=== PATIENT | female | born 1945 | race Caucasian/White ===

== ENCOUNTER 2016-11-19 15:22 | Outpatient (CLI) ==
[2016-04-18 14:14] VITALS: BMI 17.4
[2016-11-19 15:44] LABS: BASOPHILS % (AUTO) 0.1 % (0.0-3.0); HEMATOCRIT 37.3 % (37.0-47.0); HEMOGLOBIN 12.1 g/dl (12.0-16.0); IMMATURE GRANULOCYTE % (AUTO) 0.5 % (0.0-5.0); LYMPHOCYTES # (AUTO) 1.3 K/uL (0.60-3.4); LYMPHOCYTES % (AUTO) 9.3 (10.0-50.0); MEAN CORPUSCULAR HEMOGLOBIN 28.4 pg (27.0-31.0); MEAN CORPUSCULAR HGB CONC 32.4 (31.8-35.4); MEAN CORPUSCULAR VOLUME 87.6 fl (81.0-99.0); MONOCYTES # (AUTO) 0.9 K/uL (0.4-2.0); MONOCYTES % (AUTO) 6.5 (0-10); NEUTROPHILS # (AUTO) 11.7 K/ul (2.0-6.9); NEUTROPHILS % (AUTO) 83.6; PLATELET COUNT 248 10^3/uL (140-440); RED BLOOD COUNT 4.26 10^6/ul (4.20-5.40); WHITE BLOOD COUNT 14.02 K/ul (4.6-10.2)
--- NOTE | 2016-11-19 15:54 | CT ---
EXAM: CT of the chest without contrast History: Chronic obstructive pulmonary disease with acute exacerbation. Comparison: Chest CT 04/24/2016 Technique: Multiplanar CT images through the thorax were obtained without the administration of IV contrast Findings: Heart size is within normal limits. Coronary calcifications. No pericardial effusion. No pathologically enlarged thoracic lymph nodes. Emphysema. No pneumothorax. No pleural fluid. Nodular infiltrates within the right middle lobe an d lingula are not significantly changed. There is a new focal nodular infiltrate seen along the rig ht heart border in the right upper lobe measuring 2.3 cm. Scattered areas of scarring again noted. Within the visualized upper abdomen, cholecystectomy clips. Calcified granulomas within the spleen. No acute osseous abnormalities. Impression: 1. The right middle lobe and lingular nodular infiltrates are not significantly changed. 2. New focal nodular infiltrate along the right heart border in the right upper lobe. Recommend fo llowup study in 3-6 months. 3. Emphysema. 4. Coronary artery disease.
[2016-11-19 16:03] LABS: ALBUMIN 3.1 g/dL (3.4-5.0); ALBUMIN/GLOBULIN RATIO 0.72; ANION GAP 14.4; BILIRUBIN,TOTAL 0.76 mg/dL (0.00-1.20); BUN/CREATININE RATIO 11.11; CALCIUM 9.2 mg/dL (8.2-10.2); CREATININE 0.72 mg/dL (0.60-1.30); POTASSIUM 3.4 mmol/L (3.5-5.10); TOTAL PROTEIN 7.4 g/dL (5.8-8.1)
== END 2016-11-19 15:23 | disposition home or self-care (01) ==
LOC: RAD 15:22
PROVIDERS: ATTEND General Practice
DX: J44.1 Chronic obstructive pulmonary disease with (acute) exacerbation (principal)
CPT/HCPCS: 36415; 80053; 85025

== ENCOUNTER 2016-11-19 18:33 | Inpatient (IN) | payer OTHER ==
[2016-11-19 21:54] VITALS: BMI 21.6
[2016-11-19] MEDS ORDERED: INFUVITE ADULT IV ONE (22:50)
[2016-11-19] MEDS ORDERED: SOLU-MEDROL 125 MG ONE (22:52)
[2016-11-19] MEDS ORDERED: SOLU-CORTEF 250 MG IVP SCH (23:00)
[2016-11-19] MEDS ORDERED: ROCEPHIN 1 GM in SODIUM CHLORIDE 50 ML IV SCH (23:30)
[2016-11-19] MEDS: INFUVITE ADULT 10 ML in D5%-1/2NS-KCL 20 MEQ/L IV SOL 1,000 ML IV SCH (23:31)
[2016-11-19] MEDS ORDERED: ROCEPHIN ONE (23:42)
[2016-11-20] MEDS: SOLU-CORTEF 250 MG IVP SCH ×4 (00:04→23:23)
[2016-11-20] MEDS: SYMBICORT 160-4.5 MCG INHALER IH SCH ×3 (00:31→20:28)
[2016-11-20] MEDS ORDERED: ZITHROMAX 500 MG in SODIUM CHLORIDE 250 ML IV SCH (01:00)
[2016-11-20] MEDS ORDERED: OMEGA PO SCH ×2 (09:00→11:15)
[2016-11-20] MEDS ORDERED: PROBIOTIC PO SCH (09:00)
[2016-11-20] MEDS: COZAAR PO SCH (10:24)
[2016-11-20] MEDS: PROBIOTIC PO SCH (11:00)
[2016-11-20] MEDS: DUONEB NEB SCH ×3 (11:06→23:10)
[2016-11-20] MEDS: OMEGA PO SCH (15:47)
[2016-11-20] MEDS: INFUVITE ADULT 10 ML in D5%-1/2NS-KCL 20 MEQ/L IV SOL 1,000 ML IV SCH (16:55)
[2016-11-20] MEDS: ROCEPHIN 1 GM in SODIUM CHLORIDE 50 ML IV SCH (20:29)
[2016-11-20] MEDS: ZITHROMAX 500 MG in SODIUM CHLORIDE 250 ML IV SCH (21:45)
[2016-11-21] MEDS: DUONEB NEB SCH ×4 (05:26→23:23)
[2016-11-21] MEDS ORDERED: INFUVITE ADULT IV ONE ×2 (05:58→18:13)
[2016-11-21] MEDS: INFUVITE ADULT 10 ML in D5%-1/2NS-KCL 20 MEQ/L IV SOL 1,000 ML IV SCH ×2 (06:29→18:21)
[2016-11-21] MEDS: SOLU-CORTEF 250 MG IVP SCH ×3 (06:49→22:56)
[2016-11-21] MEDS ORDERED: NON-FORMULARY MEDICATION PO SCH ×22 (09:00)
[2016-11-21] MEDS: COZAAR PO SCH (09:55)
[2016-11-21] MEDS: OMEGA PO SCH (09:55)
[2016-11-21] MEDS: PROBIOTIC PO SCH (09:55)
[2016-11-21] MEDS: SYMBICORT 160-4.5 MCG INHALER IH SCH ×2 (09:55→21:13)
[2016-11-21] MEDS: ROCEPHIN 1 GM in SODIUM CHLORIDE 50 ML IV SCH (20:02)
[2016-11-21] MEDS: ZITHROMAX 500 MG in SODIUM CHLORIDE 250 ML IV SCH (21:13)
[2016-11-22] MEDS: DUONEB NEB SCH ×5 (05:05→23:15)
[2016-11-22] MEDS ORDERED: DUONEB NEB STA (06:21)
[2016-11-22] MEDS: SOLU-CORTEF 250 MG IVP SCH ×3 (06:36→20:50)
[2016-11-22] MEDS ORDERED: ALBUTEROL 0.042% NEB NEB STA (09:13)
[2016-11-22] MEDS: COZAAR PO SCH (09:47)
[2016-11-22] MEDS: OMEGA PO SCH (09:48)
[2016-11-22] MEDS: SYMBICORT 160-4.5 MCG INHALER IH SCH ×2 (09:48→20:52)
[2016-11-22] MEDS: PROBIOTIC PO SCH (09:48)
[2016-11-22] MEDS ORDERED: SOLU-CORTEF 250 MG IVP STA (10:21)
[2016-11-22] MEDS ORDERED: ALBUTEROL 0.042% NEB NEB PRN (12:58)
[2016-11-22] MEDS ORDERED: INFUVITE ADULT IV ONE (15:07)
[2016-11-22 15:11] LABS: HEMATOCRIT 31.5 % (37.0-47.0); HEMOGLOBIN 9.9 g/dl (12.0-16.0); IMMATURE GRANULOCYTE % (AUTO) 1.6 % (0.0-5.0); LYMPHOCYTES # (AUTO) 0.6 K/uL (0.60-3.4); LYMPHOCYTES % (AUTO) 6.8 (10.0-50.0); MEAN CORPUSCULAR HEMOGLOBIN 28.3 pg (27.0-31.0); MEAN CORPUSCULAR HGB CONC 31.4 (31.8-35.4); MONOCYTES # (AUTO) 0.5 K/uL (0.4-2.0); MONOCYTES % (AUTO) 5.3 (0-10); NEUTROPHILS # (AUTO) 8.1 K/ul (2.0-6.9); NEUTROPHILS % (AUTO) 86.3; PLATELET COUNT 267 10^3/uL (140-440); WHITE BLOOD COUNT 9.36 K/ul (4.6-10.2)
[2016-11-22] MEDS: INFUVITE ADULT 10 ML in D5%-1/2NS-KCL 20 MEQ/L IV SOL 1,000 ML IV SCH (15:23)
[2016-11-22 15:31] LABS: ALBUMIN 2.5 g/dL (3.4-5.0); ALBUMIN/GLOBULIN RATIO 0.74; ANION GAP 11.7; BILIRUBIN,TOTAL 0.13 mg/dL (0.00-1.20); BUN/CREATININE RATIO 14.28; CALCIUM 8.8 mg/dL (8.2-10.2); CREATININE 0.63 mg/dL (0.60-1.30); POTASSIUM 3.7 mmol/L (3.5-5.10); TOTAL PROTEIN 5.9 g/dL (5.8-8.1)
[2016-11-22] MEDS ORDERED: SOLU-CORTEF 250 MG ONE (20:50)
[2016-11-22] MEDS: ROCEPHIN 1 GM in SODIUM CHLORIDE 50 ML IV SCH (20:51)
[2016-11-22] MEDS: ZITHROMAX 500 MG in SODIUM CHLORIDE 250 ML IV SCH (21:40)
[2016-11-23] MEDS ORDERED: INFUVITE ADULT IV ONE ×2 (00:48→15:32)
[2016-11-23] MEDS: INFUVITE ADULT 10 ML in D5%-1/2NS-KCL 20 MEQ/L IV SOL 1,000 ML IV SCH ×3 (03:46→15:40)
[2016-11-23] MEDS: SOLU-CORTEF 250 MG IVP SCH ×3 (05:04→20:52)
[2016-11-23] MEDS: DUONEB NEB SCH ×4 (06:10→23:42)
[2016-11-23] MEDS: SYMBICORT 160-4.5 MCG INHALER IH SCH ×2 (09:18→20:53)
[2016-11-23] MEDS: PROBIOTIC PO SCH (09:18)
[2016-11-23] MEDS: OMEGA PO SCH (09:19)
[2016-11-23] MEDS: COZAAR PO SCH (09:19)
[2016-11-23] MEDS: ROCEPHIN 1 GM in SODIUM CHLORIDE 50 ML IV SCH (20:50)
[2016-11-23] MEDS: ZITHROMAX 500 MG in SODIUM CHLORIDE 250 ML IV SCH (21:36)
[2016-11-24] MEDS: INFUVITE ADULT 10 ML in D5%-1/2NS-KCL 20 MEQ/L IV SOL 1,000 ML IV SCH ×2 (03:29→09:45)
[2016-11-24] MEDS: SOLU-CORTEF 250 MG IVP SCH ×3 (04:20→20:22)
[2016-11-24] MEDS: DUONEB NEB SCH ×5 (05:36→23:03)
[2016-11-24] MEDS: SYMBICORT 160-4.5 MCG INHALER IH SCH ×2 (09:20→20:22)
[2016-11-24] MEDS: COZAAR PO SCH (09:21)
[2016-11-24] MEDS: PROBIOTIC PO SCH (09:21)
[2016-11-24] MEDS: OMEGA PO SCH (09:21)
--- NOTE | 2016-11-24 11:35 | PN ---
DATE OF VISIT: 11/21/16 SUBJECTIVE: The patient is alert and using 2 liters of nasal oxygen. She claims that she is feeling better. This patient has pneumonitis by CT. She had fever of 101 at the office. The patient's vital signs about 6:00 in the afternoon on 11/21/16 showed a temperature of 97.9, pulse 96, blood pressure 164/76, respiratory rate 18 and oxygen saturation 94% with 2 liters. LUNGS: Markedly diminished breath sounds with few rales and some expiratory wheezing. HEART: Audible with good tones, mostly normal sinus rhythms. ABDOMEN: Non-tender CONDITION: Stable MTDD
--- NOTE | 2016-11-24 11:41 | PN ---
DATE OF VISIT: 11/22/16 SUBJECTIVE: This patient this morning had some episode of increasing shortness of breath plus wheezing. I ordered Solu-Cortef 125mg SUBCUT and nebulizer DUONEB. The patient at the time of my examination and feeling better no longer dyspneic or tachypneic. LUNGS: Still breath sounds are markedly diminished in both sides with minimal air exchange but no wheezing and no rales HEART: Audible with good tones The patient's BNP is 427, elevated. Albumin is low at 2.5, blood sugar 142 but this patient is on Dextrose 5% with 1/2 saline IV. This patient is receiving Zithromax 500mg daily as well as Rocephin 1 gram daily. This patient has no known drug allergies and the patient will be given Lasix 20mg intervenously today and repeat BNP tomorrow. MTDD
--- NOTE | 2016-11-24 14:18 | PN ---
DATE OF VISIT: 11/23/16 SUBJECTIVE: The patient is alert and somewhat feeling better. She still has nasal oxygen at 2 liters and her oxygen saturation is between 91 to 92%. Her vitals signs at 11/23/16 showed a temperature of 95.6 axiliary, pulse 100, blood pressure 167/96 and respiratory rate 24 and oxygen saturation 90% at 2 liters. This patient is receiving DUONEB by nebulizing Q 6 hours, Rocephin 1 gram Iv piggyback daily, Zithromax 500mg IV piggyback daily, Solu-Cortef 250mg 125 Q 6 hours. MTDD
[2016-11-24] MEDS: ROCEPHIN 1 GM in SODIUM CHLORIDE 50 ML IV SCH (20:21)
[2016-11-24] MEDS: LOVENOX SUBCUT SCH (21:53)
[2016-11-24] MEDS: MUCINEX PO SCH (21:53)
[2016-11-24] MEDS: ZITHROMAX 500 MG in SODIUM CHLORIDE 250 ML IV SCH (21:53)
[2016-11-25] MEDS ORDERED: INFUVITE ADULT IV ONE (01:53)
[2016-11-25] MEDS: INFUVITE ADULT 10 ML in D5%-1/2NS-KCL 20 MEQ/L IV SOL 1,000 ML IV SCH ×2 (01:58→16:56)
[2016-11-25] MEDS: SOLU-CORTEF 250 MG IVP SCH ×3 (05:35→20:53)
[2016-11-25] MEDS: DUONEB NEB SCH ×3 (05:49→17:04)
[2016-11-25] MEDS: PROBIOTIC PO SCH (09:19)
[2016-11-25] MEDS: OMEGA PO SCH (09:19)
[2016-11-25] MEDS: LOVENOX SUBCUT SCH (09:20)
[2016-11-25] MEDS: SYMBICORT 160-4.5 MCG INHALER IH SCH ×2 (09:20→20:53)
[2016-11-25] MEDS: COZAAR PO SCH (09:20)
[2016-11-25] MEDS: MUCINEX PO SCH ×2 (09:21→20:53)
--- NOTE | 2016-11-25 11:30 | PN ---
DATE OF VISIT: 11/24/16 The patient is alert and claimed to be feeling much better today. She had coughed a large amount of sputum, which made her feel better. VITAL SIGNS: Today at 6 p.m., temperature 97.8 axillary, pulse 94, blood pressure 164/75, respiratory rate 20, oxygen saturation 97 at 2 Liters. LUNGS: The lungs now has air exchange and practically no audible air exchange yesterday. It is now heard in both sides and no rales. HEART: Audible with good tones. ASSESSMENT: Improved This patient is receiving Azithromycin 500 mg and Ceftriaxone 1 gram daily. The patient will be given Mucinex 1200 mg twice a day and Lovenox 30 mg subcutaneously daily. MTDD
[2016-11-25 19:32] LABS: ALBUMIN 2.7 g/dL (3.4-5.0); ALBUMIN/GLOBULIN RATIO 0.82; ANION GAP 14.9; BILIRUBIN,TOTAL 0.34 mg/dL (0.00-1.20); BUN/CREATININE RATIO 19.23; CALCIUM 8.5 mg/dL (8.2-10.2); CREATININE 0.78 mg/dL (0.60-1.30); POTASSIUM 2.9 mmol/L (3.5-5.10)
[2016-11-25] MEDS: ROCEPHIN 1 GM in SODIUM CHLORIDE 50 ML IV SCH (20:52)
[2016-11-26] MEDS: DUONEB NEB SCH ×4 (00:05→19:28)
[2016-11-26 05:22] LABS: BASOPHILS % (AUTO) 0.2 % (0.0-3.0); HEMATOCRIT 34.4 % (37.0-47.0); HEMOGLOBIN 10.7 g/dl (12.0-16.0); IMMATURE GRANULOCYTE % (AUTO) 1.8 % (0.0-5.0); LYMPHOCYTES # (AUTO) 1.3 K/uL (0.60-3.4); LYMPHOCYTES % (AUTO) 15.5 (10.0-50.0); MEAN CORPUSCULAR HEMOGLOBIN 28.4 pg (27.0-31.0); MEAN CORPUSCULAR HGB CONC 31.1 (31.8-35.4); MEAN CORPUSCULAR VOLUME 91.2 fl (81.0-99.0); MONOCYTES # (AUTO) 0.5 K/uL (0.4-2.0); MONOCYTES % (AUTO) 5.4 (0-10); NEUTROPHILS # (AUTO) 6.4 K/ul (2.0-6.9); NEUTROPHILS % (AUTO) 77.1; PLATELET COUNT 321 10^3/uL (140-440); RED BLOOD COUNT 3.77 10^6/ul (4.20-5.40); WHITE BLOOD COUNT 8.26 K/ul (4.6-10.2)
[2016-11-26] MEDS: SOLU-CORTEF 250 MG IVP SCH ×3 (05:55→21:27)
[2016-11-26] MEDS: OMEGA PO SCH (08:15)
[2016-11-26] MEDS: SYMBICORT 160-4.5 MCG INHALER IH SCH ×2 (08:15→21:00)
[2016-11-26] MEDS: PROBIOTIC PO SCH (08:16)
[2016-11-26] MEDS: LOVENOX SUBCUT SCH (08:16)
[2016-11-26] MEDS: COZAAR PO SCH (08:16)
[2016-11-26] MEDS: MUCINEX PO SCH ×2 (08:16→21:00)
--- NOTE | 2016-11-26 08:20 | CT ---
EXAM: CT chest without contrast. HISTORY: Pneumonia follow-up. Shortness of breath. Cough. COMPARISON: 11/19/2016, 04/25/2015. TECHNIQUE: Multiple axial images of the chest were obtained without intravenous contrast. Images w ere reformatted in the sagittal and coronal planes. FINDINGS: Evaluation for lymphadenopathy is limited due to lack of intravenous contrast. Heart siz e is normal. There is no pericardial effusion. Atherosclerotic calcifications are present. Emphysematous changes present bilaterally. Calcified granulomatous changes seen. Right upper lobe consolidation has improved with a small of consolidation in the anterior right upper lobe along the fissure persisting. There is a small amount of consolidation. The posterior right upper lobe on ax ial images 33-35 which is new. There is mildly improved aeration in the lingula as well. Dependent consolidation in both lower lobes along the diaphragms noted. Nodular density in the right upper l obe on axial image 24 is stable since 60 and 15. No pleural effusion or pneumothorax detected. Limited images of the upper abdomen demonstrate no acute finding. No acute osseous abnormality iden tified. IMPRESSION: 1. Improved aeration in the anterior right upper lobe and lingula. 2. New small focus of consolidation in the posterior right upper lobe. 3. Subsegmental atelectasis in both posterior lower lobes. 4. Follow-up CT in approximately 4-6 weeks recommended for reassessment.
[2016-11-26] MEDS ORDERED: ROCEPHIN ONE (20:16)
[2016-11-26] MEDS: ROCEPHIN 1 GM in SODIUM CHLORIDE 50 ML IV SCH (21:00)
[2016-11-27] MEDS: DUONEB NEB SCH ×3 (00:04→11:17)
[2016-11-27] MEDS: SOLU-CORTEF 250 MG IVP SCH ×2 (05:54→12:41)
[2016-11-27] MEDS: SYMBICORT 160-4.5 MCG INHALER IH SCH (08:16)
[2016-11-27] MEDS: PROBIOTIC PO SCH (08:17)
[2016-11-27] MEDS: OMEGA PO SCH (08:17)
[2016-11-27] MEDS: MUCINEX PO SCH (08:17)
[2016-11-27] MEDS: COZAAR PO SCH (08:17)
[2016-11-27] MEDS: LOVENOX SUBCUT SCH (08:18)
[2016-11-27] MEDS ORDERED: NORVASC PO SCH (14:30)
--- NOTE | 2016-11-27 14:52 | PN ---
DATE OF VISIT: 11/26/16 The patient is feeling better, but still having problems breathing. She is not back to where she was. This patient has continuous oxygen at home also. Her oxygen saturation is 92. The chest CT done today showed improved aeration in the anterior right upper lobe and lingula. New small focus of consolidation in the posterior right upper lobe. Subsegmental atelectasis in both posterior lower lobes. Follow up CT in 4 to 6 weeks. This patient was advised to take deep breaths and blow it out slowly. She should do it every hour. LUNGS: Breath sounds are markedly diminished in both sides, but there is an air exchange with minimal expiratory wheeze. HEART: Audible and regular with good tones. VITAL SIGNS: At 6:00 on 11/26/16 showed a temperature of 97.4, pulse 88, blood pressure 170/74, respiratory rate 18, oxygen saturation 94 at 2 liters. The patient's appetite seemed to be improving consuming 80 to 90% of the meals. This patient will be discharged with oral Prednisone at a different dose. MTDD
[2016-11-27 15:16] VITALS: BP 154/68; TEMP 98.7
[2016-11-27] MEDS ORDERED: COZAAR PO SCH (21:00)
--- NOTE | 2016-12-01 15:35 | HP ---
CHIEF COMPLAINT: Cough, shortness of breath and fever. HISTORY OF PRESENT ILLNESS: The patient presented to the office on the day of the admission because of fever and increasing shortness of breath and cough. The patient on examination indeed has no audible air exchange, which is a change from her previous examination and has expiratory wheezing both anteriorly and posteriorly. The patient was then sent to the hospital for a CT scan of the chest. The CT was interpreted as bilateral pneumonitis. The patient was quite weak and so the patient was advised admission and she was agreeable. PAST PERSONAL HISTORY: The patient is known to have COPD for sometime. She was admitted previously for pneumonia in April. She had herpes zoster, but no significant postherpetic neuralgia, previous cholecystectomy and CVA with complete recovery or resolution. Coronary artery disease and hypertension. FAMILY HISTORY: Father had MT and from the myocardial infarction. Mother had senile dementia. A sister with diabetes mellitus. SOCIAL HISTORY: The patient is and resides with her . She stopped smoking about seven months ago. She denied any alcohol use or drug abuse. MEDICATIONS: Symbicort 160/4.5 mcg, one puff twice a day Losartan 50 mg twice a day Spiriva 18 mcg one inhalation daily Crestor 10 mg tablet daily Probiotic one capsule daily [place] XL one daily ALLERGIES: No known drug allergies. REVIEW OF SYSTEMS: CONSTITUTIONAL: The patient has fever with some chilly sensations and fatigue. [employer] GRADER: Denies any significant headaches, no ataxia, but does have generalized weakness on account of the recent illness and no history of seizure disorder. VISUAL: Denies any blurred vision, double vision or transient loss of vision. AUDITORY: Hearing is somewhat diminished, but denies any tinnitus, pain or drainage. RESPIRATORY: The patient has significant shortness of breath and rapid breathing. She also has cough with fever. CARDIOVASCULAR: She denies any chest oppression or chest tightness. GASTROINTESTINAL: The appetite has decreased on account of the recent problems, but no abdominal pain, no diarrhea, no vomiting. GENITOURINARY: Denies any pain, frequency or urgency of urination. MUSCULOSKELETAL: No significant joint pains at this time or muscular. INTEGUMENT: No rash or pruritus. ENDOCRINE: Negative. HEMATOLOGIC: No history of prolonged bleeding. PSYCHIATRIC: Affect is normal. PHYSICAL EXAMINATION: GENERAL: We have a 71 year old female admitted to the hospital because of fever and significant increase of shortness of breath. This patient is known to have to COPD with respiratory failure and is on home oxygen. The CT scan of the chest showed bilateral pneumonitis. VITAL SIGNS: Temperature 98.6, pulse 103, blood pressure 177/81, respiratory rate 22, oxygen saturation 93 at 2 Liters. She is 5'4", 126 pounds, BMI 21.6. HEAD: Unremarkable. FACE: Symmetrical and equal with no facial weakness. No remarkable tenderness to palpation under pressure in the frontal or maxillary sinus areas. EYES: Pupils equal/reactive to light about 3 mm in size. Conjunctivae not pale. Sclerae not icteric. MOUTH: Unremarkable. THROAT: No inflammation, tumors or exudate. NECK: No masses. No bruit. No tenderness. No adenopathy. No rigidity. CHEST: Essentially symmetrical and equal with decreased expansion. LUNGS: Breath sounds are not audible. Has inspiratory, plus expiratory wheezing. HEART: Audible and regular with good tones. No murmurs. ABDOMEN: Flat, soft with no remarkable tenderness and no guarding. Bowel sounds are active. No masses palpable. EXTERNAL GENITALIA: Not examined. PELVIC: Not done. LOWER EXTREMITIES: Essentially symmetrical and equal with no significant edema. UPPER EXTREMITIES: Symmetrical and equal. ASSESSMENT: 1. BILATERAL PNEUMONITIS 2. CHRONIC RESPIRATORY FAILURE WITH EXACERBATION 3. CHRONIC OBSTRUCTIVE PULMONARY DISEASE WITH ACUTE EXACERBATION 4. HYPERTENSION, UNCONTROLLED 5. HISTORY OF CHRONIC SMOKING, STOPPED SEVEN MONTHS AGO PROGNOSIS: Guarded. MTDD
--- NOTE | 2016-12-02 14:54 | DS ---
PATIENT IDENTIFICATION: 71 year old female who is known to have chronic infective lung disease with respiratory failure with home oxygen at 2 Liters per minute presented to the office because of increasing shortness of breath and weakness with a fever of 101. The patient's breath sounds were markedly diminished with expiratory wheezing. A chest CT was done and a new infiltrate was noted. The previous infiltrate is about the same in the right middle lobe and lingular nodule infiltrate. The new one is on the border of the right cardiac border. HOSPITAL COURSE: Initial CBC showed 14,020 WBC, 11.7 neutrophils. Medications consisting of Symbicort 164.5, Losartan 50 mg twice a day and Spiriva, plus Crestor were continued including the Probiotic and [place] XL. The patient was given Zithromax 500 mg IV daily and Ceftriaxone 1 gram IV daily. The Zithromax was discontinued after 7 days. She also received Lovenox 30 mg subcutaneously daily while in the hospital. The blood pressure was still elevated and Amlodipine 2.5 mg was added. She also was prescribed Mucinex 1200 mg LA twice a day. Solu-Cortef 250 mg was given every 8 hours. Albuterol Sulfate nebulizer 0.042% was given and continued every four hours prn. The patient's temperature had returned to normal and remained normal throughout her hospital stay. The pulse was fluctuating from normal to slightly tachycardic and the blood pressure also was fluctuating in the range of 150 to 160 systolic. Blood pressure at the time of discharge was 154/68. Amlodipine 2.5 mg was added. The patient's oxygen saturation at 2 Liters was 94 at 10 a.m. on the day of discharge and also 94 at 2 o'clock. The patient claimed to be better or feeling better. Chest CT done 11/26/2016 was read as improved aeration in the anterior right upper lobe and lingula. New small focus of consolidation in the right posterior upper lobe. Subsegmental atelectasis in both posterior lobes. Follow up CT in 4-6 weeks. The patient at the time of discharge was alert, ambulatory with 2 Liters of nasal oxygen. She claimed to be feeling better. Her appetite also is better. LUNGS: Breath sounds are heard well in the left side with no rales or wheezing. The right side is diminished compared to the left, but no rales or wheezing. HEART: Audible and regular with good tones. ABDOMEN: Nontender. PLAN: The patient is then discharged to see me next week about Thursday or Thursday and she is prescribed the following medications: 1. Amlodipine 2.5 mg daily. 2. Prednisone 5 mg tablet #25, two tablets three times a day for three days and then one tablet twice a day for two days and then one daily until finished. 3. Mucinex LA 1200 mg twice a day. 4. Omnicef 300 mg capsule twice a day #8. FINAL DIAGNOSES: 1. PNEUMONITIS RIGHT UPPER LINGULA LOBE AND CARDIAC BORDER, IMPROVED 2. EXACERBATION OF CHRONIC RESPIRATORY FAILURE, IMPROVED 3. CHRONIC OBSTRUCTIVE PULMONARY DISEASE BY HISTORY, SEVERE 4. HYPERTENSION PROGNOSIS: Guarded. MTDD
--- NOTE | 2017-02-11 11:13 | PN ---
DATE OF VISIT: 11/20/2016 The patient is alert and still tachypneic at times. She is still using 2 liters of nasal oxygen. VITAL SIGNS: At 6 p.m., Temperature 97.8, pulse 80, blood pressure 123/78, respiratory rate 16, better than the previous. Oxygen saturation 96 at 2 liters. GENERAL: The patient is alert and oriented. She has no cyanosis. LUNGS: Still markedly diminished breath sounds with expiratory wheezing both anteriorly and posteriorly. ABDOMEN: Soft and nontender. HEART: Audible with good tones. CONDITION: Stable. MTDD
--- NOTE | 2017-02-11 11:19 | PN ---
DATE OF VISIT: 11/25/2016 The patient is somewhat better. She is still tachypneic, in spite of the 2 liters of oxygen. She had been on oxygen at home for sometime. LUNGS: Still has diminished breath sides in both sides. Expiratory wheezing is still present, but less. HEART: Audible with good tones, mostly regular. ABDOMEN: Soft, nontender. VITAL SIGNS: At 6 p.m., temperature 97.4, pulse 97, blood pressure 151/71, respiratory rate 20, oxygen saturation 92 at 2 liters. PLAN: We will plan to do a CT of the chest and see what improvement there is, if there is any. This patient was advised to take deep breaths about three at a time and several times a day to exercise her lungs. CONDITION: Stable and somewhat improved. MTDD
== END 2016-11-27 17:42 | disposition home or self-care (01) | DRG 194 ==
LOC: MEDSURG A 18:33
PROVIDERS: ADMIT General Practice; ATTEND General Practice
DX: J18.9 Pneumonia, unspecified organism (principal); J44.1 Chronic obstructive pulmonary disease with (acute) exacerbation; J98.11 Atelectasis; I10 Essential (primary) hypertension; R50.9 Fever, unspecified; Z87.891 Personal history of nicotine dependence; Z99.81 Dependence on supplemental oxygen
CPT/HCPCS: 36415; 80053; 83880; 85025; 87040; 87070; 94640; 99223; 99232; 99239

== ENCOUNTER 2016-12-08 14:17 | Outpatient (CLI) ==
--- NOTE | 2016-12-08 15:58 | CT ---
Examination: Noncontrast CT images of the chest. Comparison: 11/26/2016. Reason for study: Cough. FINDINGS: There are diffuse emphysematous changes noted bilaterally. Similar appearing consolidativ e changes seen in the right apex. There is similar appearing scarring changes seen in the left uppe r right upper and right middle lobes. There is a new area patchy consolidative change/scarring in t he right lung base best seen on image number 48. Similar appearing tree in bud opacities are also n oted the right middle lobe best seen on image number 33. There is no pleural effusion or pneumothor ax. The heart is not enlarged. There is atherosclerotic disease of the aorta and distal arterial va sculature to include the coronary vessels. No obvious enlargement of mediastinal lymph nodes. Within the limitations of a noncontrasted study, the liver, spleen, adrenal glands, and partially im aged pancreas are unremarkable. Degenerative disease of the thoracic spine. Impression 1. New small focus of consolidation/scarring in the posterior right lower lobe. 2. Diffuse emphysematous changes consistent with chronic obstructive pulmonary disease. 3. Multiple small regions of similar appearing consolidative changes and ground-glass as described. 4. Atherosclerotic disease.
== END 2016-12-08 14:18 | disposition home or self-care (01) ==
LOC: RAD 14:17
PROVIDERS: ATTEND General Practice
DX: R05 Cough (principal); R06.02 Shortness of breath; Z09 Encounter for follow-up examination after completed treatment for conditions other than malignant neoplasm

== ENCOUNTER 2017-06-15 08:33 | Outpatient (CLI) ==
[2017-06-15 09:07] LABS: BASOPHILS % (AUTO) 0.2 % (0.0-3.0); EOSINOPHILS # (AUTO) 0.1 K/ul (0.0-0.7); EOSINOPHILS % (AUTO) 1.5 % (0.0-7.0); HEMOGLOBIN 13.3 g/dl (12.0-16.0); IMMATURE GRANULOCYTE % (AUTO) 0.2 % (0.0-5.0); LYMPHOCYTES # (AUTO) 1.9 K/uL (0.60-3.4); LYMPHOCYTES % (AUTO) 31.7 (10.0-50.0); MEAN CORPUSCULAR HEMOGLOBIN 29.1 pg (27.0-31.0); MEAN CORPUSCULAR HGB CONC 33.3 (31.8-35.4); MEAN CORPUSCULAR VOLUME 87.5 fl (81.0-99.0); MONOCYTES # (AUTO) 0.5 K/uL (0.4-2.0); MONOCYTES % (AUTO) 8.2 (0-10); NEUTROPHILS # (AUTO) 3.5 K/ul (2.0-6.9); NEUTROPHILS % (AUTO) 58.2; PLATELET COUNT 184 10^3/uL (140-440); RED BLOOD COUNT 4.57 10^6/ul (4.20-5.40); WHITE BLOOD COUNT 5.97 K/ul (4.6-10.2)
[2017-06-15 09:17] LABS: BILIRUBIN,URINE Negative (NEGATIVE); KETONES,URINE Negative (NEGATIVE); LEUKOCYTE ESTERASE ,URINE Negative (NEGATIVE); NITRITE,URINE Negative (NEGATIVE); PROTEIN,URINE Negative (NEGATIVE); URINE, BLOOD Negative (NEGATIVE)
[2017-06-15 09:20] LABS: ADD URINE MICROSCOPIC NO
[2017-06-15 09:27] LABS: ALBUMIN 3.6 g/dL (3.4-5.0); ALBUMIN/GLOBULIN RATIO 1.03; ANION GAP 12.1; BILIRUBIN,TOTAL 0.46 mg/dL (0.00-1.20); BUN/CREATININE RATIO 13.33; CALCIUM 9.4 mg/dL (8.2-10.2); CHOL/HDL RATIO 3.2 (4.5-5.5); CREATININE 0.75 mg/dL (0.60-1.30); POTASSIUM 4.1 mmol/L (3.5-5.10); TOTAL PROTEIN 7.1 g/dL (5.8-8.1)
== END 2017-06-15 08:34 | disposition home or self-care (01) ==
LOC: LAB 08:33
PROVIDERS: ATTEND General Practice
DX: E78.5 Hyperlipidemia, unspecified (principal); I10 Essential (primary) hypertension; J44.9 Chronic obstructive pulmonary disease, unspecified; R09.89 Other specified symptoms and signs involving the circulatory and respiratory systems; Z79.899 Other long term (current) drug therapy
CPT/HCPCS: 36415; 80053; 80061; 81001; 85025

== ENCOUNTER 2018-02-24 15:11 | Outpatient (CLI) | payer OTHER ==
--- NOTE | 2018-02-24 15:54 | CT ---
EXAM: CT abdomen pelvis without contrast HISTORY: Mid abdominal pain COMPARISON: None TECHNIQUE: CT abdomen pelvis performed without intravenous contrast. Coronal and sagittal reformatt ed images obtained. FINDINGS: Lung bases clear. No free air. No acute abnormalities of the bones. Degenerative change in the spine. Evaluation organ parenchyma limited without contrast. Liver appears normal. Patient status post cholecystectomy. Pancreas unremarkable. Granulomas calcification in the spleen. Splee n otherwise unremarkable. Adrenals unremarkable. Calcification right kidney likely vascular. No hy dronephrosis. No definite nephrolithiasis. Aorta normal caliber. Extensive atherosclerosis. Bladd er only mildly distended and poorly evaluated, grossly unremarkable. Uterus unremarkable. Stomach a ppears normal. No dilated loops small bowel. Appendix not visualized. Mild colonic diverticulosis. No inflammatory stranding identified in the abdomen pelvis. IMPRESSION: 1. No acute inflammatory process identified in the abdomen or pelvis. 2. Mild colonic diverticulosis. 3. Atherosclerosis
--- NOTE | 2018-02-24 15:55 | CT ---
EXAM: CT chest without contrast HISTORY: Shortness of breath and cough COMPARISON: CT chest 12/08/2016 and multiple priors TECHNIQUE: Serial axial images of the chest were obtained from the lung apices to the upper abdomen without contrast. These were viewed in multiple planes. FINDINGS: The thyroid is normal. The visualized vessels demonstrates mild atherosclerotic disease w ithout aneurysm or stenosis. The heart is normal in size without pericardial effusion. There are no pathologically enlarged mediastinal or hilar lymph nodes. There is no pneumothorax or pleural effusion. There is unchanged emphysematous disease. There is un changed right lower lobe scar on image 20. There is minimal airway thickening in the lower lobes. Th e central airways are patent. Osseous structures demonstrate degenerative disease of the spine. The soft tissues are unremarkable. IMPRESSION: 1. No acute cardiopulmonary process or consolidation. 2. Unchanged emphysematous disease and mild scattered scarring. There is minimal lower lobe airway t hickening consistent with history of chronic obstructive pulmonary disease. 3. Mild atherosclerotic disease and degenerative disease of the spine.
== END 2018-02-24 15:12 | disposition home or self-care (01) ==
LOC: RAD 15:11
PROVIDERS: ATTEND General Practice
DX: R06.02 Shortness of breath (principal); R19.06 Epigastric swelling, mass or lump; E78.5 Hyperlipidemia, unspecified; I10 Essential (primary) hypertension; J44.9 Chronic obstructive pulmonary disease, unspecified; R09.89 Other specified symptoms and signs involving the circulatory and respiratory systems; Z79.899 Other long term (current) drug therapy
CPT/HCPCS: 36415; 80053; 80061; 81001; 83880; 85025

== ENCOUNTER 2018-09-13 14:50 | Outpatient (CLI) | payer OTHER ==
--- NOTE | 2018-09-13 15:39 | DI ---
EXAM: Two views of the chest. History: Chronic obstructive pulmonary disease Comparison: Chest radiograph 07/09/2016 Findings: Heart size is within normal limits. There is hyperinflation with increase in retrosternal clear space. There is bronchial wall thickening. No consolidation. No pleural fluid and no pneumo thorax. Atherosclerotic vascular calcifications. No acute osseous abnormalities. Impression: No definite acute infiltrates. Chronic obstructive pulmonary disease
== END 2018-09-13 14:51 | disposition home or self-care (01) ==
LOC: RAD 14:50
PROVIDERS: ATTEND General Practice
DX: J44.9 Chronic obstructive pulmonary disease, unspecified (principal); R06.89 Other abnormalities of breathing
CPT/HCPCS: 36415; 80053; 83880; 85025

== ENCOUNTER 2018-11-22 14:23 | Outpatient (CLI) ==
--- NOTE | 2018-11-22 14:45 | DI ---
EXAM: Two views of the chest. History: Chest pain. Comparison: Chest radiograph 09/13/2018 Findings: Heart size is normal. Hyperinflation with increase in retrosternal clear space. No defin ite acute infiltrates. No appreciable pleural fluid and no pneumothorax. No acute osseous abnormali ties. Atherosclerotic vascular calcifications. Impression: No definite acute infiltrates. Chronic obstructive pulmonary disease. No change compar ed to the prior study
== END 2018-11-22 14:24 | disposition home or self-care (01) ==
LOC: RAD 14:23
PROVIDERS: ATTEND General Practice
DX: R07.9 Chest pain, unspecified (principal)

== ENCOUNTER 2018-12-15 13:40 | Emergency (ER) | payer OTHER ==
[2018-12-15 13:49] VITALS: BP 124/58; TEMP 97; BMI 16.6
--- NOTE | 2018-12-15 14:57 | CT ---
EXAM: CT left ankle without contra HISTORY: Injury COMPARISON: None TECHNIQUE: CT left ankle performed without intravenous contrast. Coronal and sagittal reformatted i mages obtained. FINDINGS: The bones appear demineralized. No fracture or dislocation. Ankle mortise symmetric. Sigala bcutaneous edema about the foot and ankle. IMPRESSION: 1. No fracture or dislocation. 2. Diffuse subcutaneous edema. Recommend correlation for cellulitis.
--- NOTE | 2018-12-15 14:58 | CT ---
EXAM: CT left foot without contrast HISTORY: Injury COMPARISON: None TECHNIQUE: CT left foot performed without intravenous contrast. Coronal and sagittal reformatted of the images obtained. FINDINGS: Bones appear demineralized. No fracture or dislocation. There is a blister about the tyler bridget aspect of the forefoot at the level of the distal aspect second - third metatarsal level. In the adjacent subcutaneous tissues, there is a high density collection measuring 1.1 x2.6 x2.3 cm and 85 HU, and 80 HU, most consistent with hematoma. Diffuse subcutaneous edema about the foot. IMPRESSION: 1. No fracture or dislocation. 2. 2.5 cm high density collection in the subcutaneous tissues, most consistent with hematoma. Adjac ent blister. Recommend clinical follow-up. 3. Diffuse subcutaneous edema about the ankle and foot. Recommend clinical correlation for cellulit is.
--- NOTE | 2018-12-15 17:19 | ED.PDOC ---
General ED Provider: Dr. CATARINO MARTINEZ Chief Complaint: Foot Pain/Injury Stated Complaint: left foot brusing Time Seen by Physician: 14:00 (heavy dog stepped on her left foot) Mode of Arrival: Wheelchair Information Source: Patient Exam Limitations: No limitations [facility] Nursing and Triage Documentation Reviewed and Agree: Yes Does patient meet sepsis criteria?: No If yes, has appropriate treatment been initiated?: No System Inflammatory Response Syndrome: Not Applicable Sepsis Protocol: For patient's 13 years and over: Temp is 96.8 and below OR 101 and greater Pulse >90 BPM Resp >20/minute Acutely Altered Mental Status Are patient's symptoms suggestive of a new infection, such as: -Pneumonia -Skin, Soft Tissue -Endocarditis -UTI -Bone, Joint Infection -Implantable Device -Acute Abdominal Infection -Wound Infection -Meningitis -Blood Stream Catheter Infection -Unknown Musculoskeletal Complaint Exam - Ankle/Foot Complaint/Exam Location of Injury: Reports: Left, Foot Mechanism of Injury: Reports: Trauma Onset/Duration: 1 week ago see photos Symptoms Are: Reports: Still present Onset of Pain: Reports: Immediate Initial Severity: Mild Current Severity: Mild Location: Reports: Discrete Character: Reports: Dull, Aching Alleviating: Reports: None Aggravating: Reports: None Able to Bear Weight: No Associated Signs and Symptoms: Reports: Swelling, Redness Gout Risk Factors: Reports: None Related Surgical History: Reports: None Lower Extremity Findings: Present: Swelling, Ecchymosis Tenderness: Absent: Medial malleolus, Lateral malleolus, Heel, Achilles insertion, Midfoot, Metatarsals, Digits Differential Diagnosis: Closed Fracture, Sprain, Strain Review of Systems - Review Of Systems Constitutional: Reports: No symptoms Eyes: Reports: No symptoms Ears, Nose, Mouth, Throat: Reports: No symptoms Respiratory: Reports: No symptoms Cardiac: Reports: No symptoms GI: Reports: No symptoms : Reports: No symptoms Musculoskeletal: Reports: Other (left foot edema and brusing) Skin: Reports: No symptoms Neurological: Reports: No symptoms Endocrine: Reports: No symptoms Hematologic/Lymphatic: Reports: No symptoms All Other Systems: Reviewed and Negative Past Medical History - Past Medical History Previously Healthy: No Endocrine: Reports: None Cardiovascular: Reports: None Respiratory: Reports: COPD (pulmonary nodule), Pneumonia Hematological: Reports: None Gastrointestinal: Reports: None Genitourinary: Reports: None Neuro/Psych: Reports: None Musculoskeletal: Reports: None Cancer: Reports: None Last Menstrual Period: none - Surgical History General Surgical History: Reports: Unknown - Family History Family History: Reports: Unknown - Social History Smoking Status: Former smoker Hx Substance Use: No Alcohol Screening: None Physical Exam - Physical Exam Appearance: Well-appearing, No pain distress, Well-nourished Eyes: LULU, EOMI, Conjunctiva clear ENT: Ears normal, Nose normal, Oropharynx normal Respiratory: Airway patent, Breath sounds clear, Breath sounds equal, Respirations nonlabored Cardiovascular: RRR, Pulses normal, No rub, No murmur GI/: Soft, Nontender, No masses, Bowel sounds normal, No Organomegaly Musculoskeletal: Normal strength, ROM intact, No edema, No calf tenderness Skin: Warm, Dry (brused see photos) Neurological: Sensation intact, Motor intact, Reflexes intact, Cranial nerves intact, Alert, Oriented Psychiatric: Affect appropriate, Mood appropriate Physician Notification - Case Discussed Physician Notified: pmd Time of Notification: 17:21 (labs and sepsis profile negative pmd would like to see her in am candi present during my discussion with pmd and pt and the family) Critical Care Note - Critical Care Note Total Time (mins): 0 Course - Course Hematology/Chemistry: 12/15/18 15:47 12/15/18 15:47 Orders, Labs, Meds: Lab Review 12/15/18 12/15/18 12/15/18 15:47 15:47 15:47 WBC 5.23 RBC 4.33 Hgb 12.4 Hct 38.3 MCV 88.5 MCH 28.6 MCHC 32.4 RDW Coeff of Shayy 13.1 Plt Count 194 Immature Gran % (Auto) 0.2 Neut % (Auto) 63.2 Lymph % (Auto) 27.2 Island % (Auto) 6.9 Eos % (Auto) 2.1 Baso % (Auto) 0.4 Immature Gran # (Auto) 0.0 Neut # (Auto) 3.3 Lymph # (Auto) 1.4 Island # (Auto) 0.4 Eos # (Auto) 0.1 Baso # (Auto) 0.0 Sodium 138.1 Potassium 4.42 Chloride 96.1 L Carbon Dioxide 34.6 H Anion Gap 11.82 BUN 11.1 Creatinine 0.50 L Estimated GFR (MDRD) 120.00 BUN/Creatinine Ratio 22.20 Glucose 88.3 Lactic Acid Calcium 8.73 Total Bilirubin 0.35 AST 23.4 ALT 11.5 Alkaline Phosphatase 84.1 Total Protein 7.20 Albumin 4.06 Globulin 3.14 Albumin/Globulin Ratio 1.29 Procalcitonin < 0.05 12/15/18 15:47 WBC RBC Hgb Hct MCV MCH MCHC RDW Coeff of Shayy Plt Count Immature Gran % (Auto) Neut % (Auto) Lymph % (Auto) Island % (Auto) Eos % (Auto) Baso % (Auto) Immature Gran # (Auto) Neut # (Auto) Lymph # (Auto) Island # (Auto) Eos # (Auto) Baso # (Auto) Sodium Potassium Chloride Carbon Dioxide Anion Gap BUN Creatinine Estimated GFR (MDRD) BUN/Creatinine Ratio Glucose Lactic Acid 0.60 L Calcium Total Bilirubin AST ALT Alkaline Phosphatase Total Protein Albumin Globulin Albumin/Globulin Ratio Procalcitonin Orders Category Date Time Status BLOOD CULTURE (ED ONLY) Stat LAB 12/15/18 15:58 Received CBC W/ AUTO DIFF Stat LAB 12/15/18 15:47 Completed COMPREHENSIVE METABOLIC PANEL Stat LAB 12/15/18 15:47 Completed LACTIC ACID Stat LAB 12/15/18 15:47 Completed PROCALCITONIN Stat LAB 12/15/18 15:[address] ANKLE LEFT WITHOUT CONTRAST Stat RADS 12/15/18 13:[address] FOOT LEFT WITHOUT CONTRAST Stat RADS 12/15/18 13:56 Completed Vital Signs: Temp Pulse Resp BP Pulse Ox 12/15/18 13:41 97.0 F L 78 20 124/58 L 97 Departure - Departure Time of Disposition: 17:20 (see photos) Disposition: HOME SELF-CARE Discharge Problem: Injury of foot Contusion of foot, left Qualifiers: Encounter type: initial encounter Qualified Code(s): S90.32XA - Contusion of left foot, initial encounter Instructions: Foot Contusion (ED) Condition: Good Pt referred to PMD for follow-up: Yes IPMP verified?: No Additional Instructions: Please call your Family Physician as soon as possible to schedule a follow-up appointment.your doctor would like to see you in [place] his office Allergies/Adverse Reactions: Allergies No Known Allergies Allergy (Verified 12/15/18 13:48)
== END 2018-12-15 17:30 | disposition home or self-care (01) ==
LOC: ED 13:40
DX: S90.32XA Contusion of left foot, initial encounter (principal); W54.1XXA Struck by dog, initial encounter
CPT/HCPCS: 36415; 80053; 83605; 84145; 85025; 87040; 99283

== ENCOUNTER 2018-12-27 14:42 | Inpatient (IN) ==
[2018-12-27 15:18] VITALS: BMI 17.1
--- NOTE | 2018-12-27 16:45 | DI ---
EXAM: Three views of the left foot. History: Left foot pain with swelling and redness. Findings: No acute fracture or dislocation. There is mild dorsal subcutaneous edema. Mild to moder ate narrowing of the first MTP joint with small osteophytes. No cortical destruction identified to s uggest osteomyelitis. Impression: 1. No acute osseous abnormality. 2. No radiographic evidence for osteomyelitis. 3. 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 4. Mild dorsal soft tissue swelling
[2018-12-27] MEDS: DUONEB NEB SCH (20:20)
[2018-12-27] MEDS ORDERED: NON-FORMULARY MEDICATION (Losartan Potassium 50 MG) PO SCH (21:00)
[2018-12-27] MEDS ORDERED: BACTRIM DS 800/160 MG PO SCH (21:00)
[2018-12-27] MEDS: COZAAR PO SCH (21:01)
[2018-12-27] MEDS: CRESTOR PO SCH (21:02)
[2018-12-27] MEDS ORDERED: MAXIPIME ONE (23:48)
[2018-12-27] MEDS: MAXIPIME 1 GM in SODIUM CHLORIDE 50 ML IV SCH (23:57)
[2018-12-28] MEDS: FLONASE NAS SCH ×2 (00:13→08:40)
[2018-12-28] MEDS: NORCO 5-325 PO PRN (01:35)
[2018-12-28] MEDS ORDERED: MAXIPIME ONE (05:16)
[2018-12-28] MEDS: MAXIPIME 1 GM in SODIUM CHLORIDE 50 ML IV SCH ×3 (05:24→21:22)
--- NOTE | 2018-12-28 09:09 | HP ---
DATE OF SERVICE: 12/27/18 CHIEF COMPLAINT: Swollen red left foot, dark area on the anterior surface of the distal foot. HISTORY OF PRESENT ILLNESS: The patient was jumping, weighs about 85 lbs and one foot landed on her left foot. This happened on December 09, 2018. The patient presented to the emergency room on 12/15 because of swelling and pain. The patient was noted to have a large vesicular area on the anterior surface of the distal foot with some ecchymosis mostly of the ankle. The patient had CT scan of the foot and ankle, left and no fractures were noted both of the ankle and foot. Diffuse subcutaneous edema was seen on December 15, 2018. The patient was discharged, instructed to follow with me. This patient was seen at the office and was prescribed Bactrim DS to be taken one twice a day. There seemed to beginning of some red streaks directed proximally. The foot is swollen as well as the ankle. The patient was seen again at the office and there was swelling and redness. The dark area was mostly likely a hematoma of skin on top of the hematoma has questions with regards to viability. The area on the left foot had been oozing on top. There is still swelling and redness of the whole foot. The patient is admitted. PAST PERSONAL HISTORY: The patient is known to have COPD, severe on home oxygen for some time. She had a pneumonia superimposed on COPD in 2014. Also, developed a herpes zoster that had resolved with no significant postherpetic neuralgia. Previous cholecystectomy, CVA with complete recovery or resolution, coronary artery disease and hypertension. FAMILY HISTORY: Father had [place] and from the myocardial infarction. Mother had senile dementia and sister had diabetes mellitus. SOCIAL HISTORY: The patient is and resides with her . She stopped smoking about 20 months ago. Denies alcohol use. Denies illicit drug use. MEDICATIONS: (HOME) Crestor 10 mg daily Ipratropium/Albuterol 3 cc Ampule for ambulation at bedtime Bactrim DS one twice a day, completed Losartan 50 mg at bedtime ALLERGIES: NKDA REVIEW OF SYSTEMS: CONSTITUTIONAL: Denies any fever or chills or any fatigue. This patient is always tired because of the COPD. 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 VISUAL: Negative. HEARING: Diminished. Denies any tinnitus, pain or drainage. RESPIRATORY: The patient is complaining of cough more than usual. She also has slight sore throat. No hemoptysis. She is always short of breath and she has nasal cannula at home using 2L of oxygen. CARDIOVASCULAR: Denies any chest pain or chest oppression. GASTROINTESTINAL: The patient's appetite is adequate. She denies any dysphagia. No anorexia. No diarrhea or blood in the stool. GENITOURINARY: Denies any pain on urination or frequency. MUSCULOSKELETAL: The patient does have some joint pains but not requiring medications. INTEGUMENT: Denies any rash, pruritus or ecchymosis. ENDOCRINE: No symptoms. HEMATOLOGY: No history of prolonged bleeding or spontaneous bleeding. PSYCHIATRIC: Affect appears to be normal. PHYSICAL EXAMINATION: GENERAL: 73-year-old female admitted to the hospital because of swelling and redness of the left foot with fluctuant area in the dorsal surface of the distal foot with hematoma. The patient does have some pain intermittently. The patient had trauma December 09, 2018 when her big dog stepped on her foot. There were no fractures on x-ray. Vital signs on admission: Temperature 97.5, pulse 66, blood pressure 124/62 left , 126/66 right, respiratory rate 22, oxygen saturation 99 on 2L of nasal oxygen. She is 5'4" weighing 199 lbs, 33.91 ozs. HEAD: Unremarkable. Scalp: No active dermatitis. FACE: Symmetrical and equal with no facial weakness and no significant tenderness in the frontal or maxillary areas to palpation and/or pressure. EYES: Pupils are equal and reactive to light about 3 mm in size. Conjunctivae not pale, sclerae nonicteric. MOUTH: Unremarkable. THROAT: No inflammation, no tumors, no exudates. NECK: No masses, no tenderness, no bruit. CHEST: Symmetrical and equal with limited expansion. LUNGS: Breath sounds are not audible. No rales or wheezing. HEART: Audible and regular with good tones. ABDOMEN: Flat, soft and no remarkable tenderness. No guarding. No masses. No bruit. Bowel sounds are active. EXTERNAL GENITALIA: Not examined. PELVIC/RECTAL: Not performed. LOWER EXTREMITIES: Essentially symmetrical and equal except for the left foot and ankle. This patient has swelling and redness of the entire left foot with hematoma that is fluctuant with eschar. Pedal pulses not palpable. UPPER EXTREMITIES: Symmetrical and equal. ASSESSMENT: 1. CELLULITIS LEFT FOOT 2. HEMATOMA POST INJURY NOW FLUCTUANT 3. COPD, SEVERE 4. CHRONIC RESPIRATORY FAILURE ON OXYGEN 5. CHRONIC TOBACCO USE AND ABUSE, STOPPED 20 MONTHS AGO 6. HYPERTENSION 7. DYSLIPIDEMIA ON MEDICATION The patient's CBC showed mild anemia. The procalcitonin is normal less than 0.05 , renal normal. MTDD
[2018-12-28] MEDS: DUONEB NEB SCH (20:50)
[2018-12-28] MEDS: CRESTOR PO SCH (21:22)
[2018-12-28] MEDS: COZAAR PO SCH (21:22)
[2018-12-29] MEDS: MAXIPIME 1 GM in SODIUM CHLORIDE 50 ML IV SCH ×3 (05:20→20:51)
[2018-12-29] MEDS: FLONASE NAS SCH (08:55)
[2018-12-29] MEDS: NORCO 5-325 PO PRN (09:45)
--- NOTE | 2018-12-29 14:43 | PN ---
DATE OF VISIT: 12/28/18 The patient is alert, oriented times four with some dyspnea with minimal exertion. This patient is known to have chronic respiratory failure on oxygen. VITAL SIGNS: Today at 2 p.m. showed a temperature of 98.7, pulse 68, blood pressure 109/58, oxygen saturation 96 with 2 liters of oxygen. She did eat 75% of her lunch. No labs today. Wound culture preliminary too young to read. The patient is receiving Cefepime 1 gram IV every 8 hours. Her E GFR was 101. The patient, however, is 73 years of old and very thin. The swelling and redness of the left foot has regressed remarkably. The dark area of the scab has no drainage. I told her that the foot needs to be again elevated above her heart level. Hopefully, the problem would resolve. However continued edema of the foot would probably hinder the healing process. This was explained to the patient, as well as the daughter. CYNDI
[2018-12-29] MEDS: DUONEB NEB SCH (20:19)
[2018-12-29] MEDS: COZAAR PO SCH (20:50)
[2018-12-29] MEDS: CRESTOR PO SCH (20:50)
[2018-12-30] MEDS: MAXIPIME 1 GM in SODIUM CHLORIDE 50 ML IV SCH (05:00)
[2018-12-30] MEDS: FLONASE NAS SCH (08:14)
[2018-12-30] MEDS: NORCO 5-325 PO PRN (11:55)
[2018-12-30] MEDS: LEVAQUIN 500 MG in PREMIX 100 ML D5W 1 BAG IV SCH (11:56)
[2018-12-30] MEDS: COZAAR PO SCH (21:27)
[2018-12-30] MEDS: CRESTOR PO SCH (21:27)
[2018-12-30] MEDS: DUONEB NEB SCH (21:30)
[2018-12-31] MEDS: FLONASE NAS SCH ×2 (08:52→09:09)
[2018-12-31] MEDS: LEVAQUIN 500 MG in PREMIX 100 ML D5W 1 BAG IV SCH (08:52)
[2018-12-31] MEDS ORDERED: LEVAQUIN 500 MG in PREMIX 100 ML D5W 1 BAG IV SCH (09:00)
--- NOTE | 2018-12-31 11:22 | PN ---
DATE OF SERVICE: 12/29/18 SUBJECTIVE: The patient is alert and oriented times four with nasal oxygen. The left foot swelling is much less as well as the dark reddish discoloration. The scab is somewhat dry. No debridement done today. The cultures showed gram positive cocci but no ID at this time. We will continue the same antibiotics until we have the ID. The patient again was advised to keep elevating the foot. The patient is in the sitting position with the foot about right angle to the body. The patient is not quite compliant with instructions. She had been told repeatedly that the foot should be at least higher than her heart if not level. This has more or less had not been accomplished. The patient did eat 100% of the dinner. VITAL SIGNS: Temperature 97.8, pulse 61, blood pressure 100/50, respiratory rate 20, oxygen saturation 98 with 2 liters of oxygen. It was listed as room air but this patient always have oxygen. LUNGS: No air exchange practically HEART: Normal sinus rhythm CONDITION: Left foot improved. MTDD
[2018-12-31] MEDS: NORCO 5-325 PO PRN ×2 (13:02→23:08)
--- NOTE | 2018-12-31 15:17 | DI ---
EXAM: Two views of the chest. History: Short of breath, chronic obstructive pulmonary disease Comparison: Chest radiograph 11/22/2018 Findings: Heart size is normal. Hyperinflation with increase in retrosternal clear space. No defin ite acute infiltrates. No appreciable pleural fluid and no pneumothorax. No acute osseous abnormali ties. Atherosclerotic vascular calcifications. Impression: No definite acute infiltrates. Chronic obstructive pulmonary disease. No change compar ed to the prior study.
[2018-12-31] MEDS ORDERED: FLONASE NAS SCH (21:00)
[2018-12-31] MEDS: CRESTOR PO SCH (21:15)
[2018-12-31] MEDS: COZAAR PO SCH (21:15)
[2018-12-31] MEDS: DUONEB NEB SCH (21:45)
[2019-01-01] MEDS: LEVAQUIN 500 MG in PREMIX 100 ML D5W 1 BAG IV SCH (08:37)
[2019-01-01 13:28] VITALS: BP 106/53; TEMP 98.5
--- NOTE | 2019-01-04 10:45 | PN ---
DATE OF SERVICE: 12/30/18 SUBJECTIVE: The patient is alert and oriented. The swelling in the foot and redness almost has resolved completely. The dark spot is softer. The culture did show Staph Epidermitis, sensitive to Cipro, Levaquin, Oxacillin, Vancomyicin, Tetracycline. It was not tested against cephalosporins. The Cefepime was discontinued and the patient was given Levaquin 500 mg intravenously daily. The patient weighs 99 lbs. The EGFR on 12/27/18 was 101. The BUN was 8.2. No chemistries done; will be ordered tomorrow. The patient's vital signs at 2 p.m. 12/30/18 showed a temprature of 98.0, pulse 78, blood pressure 94/50, respiratory rate 16, oxygen saturation 97 on 2L of oxygen. This patient is using oxygen chronically. She has respiratory failure. Appetite seemed to be improved. She ate 100% of her dinner. [facility]
--- NOTE | 2019-01-04 10:56 | PN ---
DATE OF SERVICE: 12/31/18 SUBJECTIVE: The necrotic area was debrided today. The area was prepped with Iodine and removed the necrotic tissue sharply using a scalpal #15. The area was packed with 4 x 4 and the dressing has to be changed three times a day morning, noon and evening consisting of 2 x 2 packing the cavity with sterile saline. This patient is referred to the Wound Clinic and will be seen this Thursday. This patient will be seen again in the office the coming Thursday since I will not be at the office Thursday. The patient wanted to be referred to another doctor and I told her that there was no broken bone and I do not know what the others doctors would do for the wound. At this time, the bone does not seem to be affected and this is new and there is no significant infection. The patient becomes tachypneic with minimal exertion in spite of the oxygen. The patient tolerated the debridement well. She did eat dinner today 100%. Vital signs at 2 p.m. today showed a temperature 98.5, pulse 72, BP 132/64, respiratory rate 18, oxygen saturation 98 on 2L. LABS: Today showed normal WBC 6,180, hemoglobin 12, RBC 4.26, hematocrit 38.2. Sodium potassium chloride acceptable, slightly lower chloride. The eGFR is 75 BC. The BUN has risen from 8.2 to 15.2, creatinine 0.58 to 0.75. The rest of the chemistries are unremarkable. MTDD
--- NOTE | 2019-01-10 11:52 | DS ---
DATE OF SERVICE: 01/01/19 PATIENT IDENTIFICATION: 73 year old female with hematoma with liquefaction on the dorsal surface distal left foot. She was seen in the office and the whole foot was swollen and red. HOSPITAL COURSE: She was then admitted. The injury resulted from her dog stepping on her foot. The dog weighs somewhere 85-90 pounds. She did have hematoma and was seen at the emergency room and x-ray showed no fracture. The patient was seen at the office and was prescribed Bactrim DS and elevation of the foot and leg above the heart level but that had not been accomplished. Because of the persistent redness and now fluctuant hematoma on the dorsal surface of the left foot admission was felt necessary. She was then admitted. X-ray of the foot showed now acute osseous abnormality. No radiographic evidence of the osteomyelitis, mild dorsal soft tissue swelling. CBC times two showed no significant difference except it has mild anemia. CO2 is higher 32.7 and 38.8. This patient is known to have COPD with chronic respiratory failure on oxygen at home. The rest of the CMP is unremarkable and normal. The procalcitonin is less than 0.05. Urinalysis was unremarkable. Would culture did show staph epidermitis. Sensitive to Cipro, Clindamycin, Gentamicin, Levofloxacin, Linezolid, Oxacillin , Quinupristin, Rifampin, Tetracycline and Vancomycin. Cefepime was given 1 gram every 8 hours intervenously. This was changed to Levofloxacin 500mg daily after we have obtained the culture results. This patient was also continued on her home medication for her chronic problems. The foot swelling had subsided remarkably. The swelling also has reduced. Debridement of the hematoma was done the before discharge. The dressing was changed on the day of discharge using a 2x2 soaked in saline. The patient was to continue the same way at home. The patient at the time of discharge was alert, ambulatory with chronic nasal oxygen at two liters per minute. The left foot swelling and redness has reduced to close to normal. There is a cavity rounded on the dorsal surface of the distal foot. It is covered with dressing using a 2x2 moist with saline and anchored with a Coban. Her vital signs on discharge 01/01/19 showed a temperature of 98.5, pulse 73, blood pressure 106/53, respiratory rate 18, oxygen saturation 95 at 2 liters of oxygen. They put her at room air and this patient never had been on room air for some time. LUNGS: Markedly diminished breath sounds to barely audible air exchange. Maybe some rales questionable but since there is no air movement rale and wheezing could be difficult to assess. HEART: Audible and regular with good tones. ABDOMEN: Flat and nontender LOWER EXTREMITIES: No tenderness in the calf muscles and no edema now. Still some slight redness in the dorsal surface of the left foot. The patient is prescribed Levofloxacin 500mg daily on discharge. She is to resume all of her previous medications prior to this hospitalization. The patient is to see me at the clinic on 01/04/19. This also scheduled to go to Wound Clinic 01/05/19. This patient would be seen in the Wound Clinic and I will try to catch up with her otherwise I will have to see her in the office. FINAL DIAGNOSES: 1. Ulceration dorsal surface left foot, distal secondary to trauma 2. Peripheral arterial disease, absent tibial pulses 3. Chronic obstructive lung disease, severe 4. Chronic respiratory failure on nasal oxygen 5. Hypertension, controlled 6. Chronic tobacco use and abuse, stopped 20 months 7. History of dyslipidemia PROGNOSIS: Guarded to Poor because of the chronic lung problems. TIME SPENT: GREATER THAN 30 MINUTES MTDD
== END 2019-01-01 18:45 | disposition home or self-care (01) | DRG 914 ==
LOC: MEDSURG B 14:42
PROVIDERS: ADMIT General Practice; ATTEND General Practice
DX: T14.8XXA Other injury of unspecified body region, initial encounter (principal); L03.116 Cellulitis of left lower limb; J96.10 Chronic respiratory failure, unspecified whether with hypoxia or hypercapnia; W54.8XXA Other contact with dog, initial encounter; J44.9 Chronic obstructive pulmonary disease, unspecified; Z72.0 Tobacco use; I10 Essential (primary) hypertension; E78.5 Hyperlipidemia, unspecified; Z99.81 Dependence on supplemental oxygen
CPT/HCPCS: 36415; 80053; 81001; 84145; 85025; 87070; 87186; 94640

== ENCOUNTER 2018-12-27 15:52 | Outpatient (CLI) | payer OTHER ==
[2018-12-27 15:18] VITALS: BMI 17.1
== END 2018-12-27 15:53 | disposition home or self-care (01) ==
LOC: RHC-LAB 15:52
PROVIDERS: ATTEND General Practice
DX: R05 Cough (principal); J02.9 Acute pharyngitis, unspecified
CPT/HCPCS: 87502; 87651

== ENCOUNTER 2019-01-05 10:56 | Outpatient (CLI) | END 2019-01-05 10:57 | disposition home or self-care (01) | LOC: WOUND 10:56 | PROVIDERS: ATTEND Nurse Practitioner Family | DX: S97.82XA Crushing injury of left foot, initial encounter (principal); J44.9 Chronic obstructive pulmonary disease, unspecified | CPT/HCPCS: 99203 ==

== ENCOUNTER 2019-01-12 10:55 | Outpatient (CLI) | END 2019-01-12 10:56 | disposition home or self-care (01) | LOC: WOUND 10:55 | PROVIDERS: ATTEND Nurse Practitioner Family | DX: S97.82XA Crushing injury of left foot, initial encounter (principal); J44.9 Chronic obstructive pulmonary disease, unspecified ==

== ENCOUNTER 2019-01-19 11:09 | Outpatient (CLI) | payer OTHER | END 2019-01-19 11:10 | disposition home or self-care (01) | LOC: WOUND 11:09 | PROVIDERS: ATTEND Nurse Practitioner Family | DX: S97.82XA Crushing injury of left foot, initial encounter (principal); J44.9 Chronic obstructive pulmonary disease, unspecified ==

== ENCOUNTER 2019-01-26 11:02 | Outpatient (CLI) | END 2019-01-26 11:03 | disposition home or self-care (01) | LOC: WOUND 11:02 | PROVIDERS: ATTEND Nurse Practitioner Family | DX: S97.82XA Crushing injury of left foot, initial encounter (principal); J44.9 Chronic obstructive pulmonary disease, unspecified ==

== ENCOUNTER 2019-02-02 11:05 | Outpatient (CLI) | payer OTHER | END 2019-02-02 11:06 | disposition home or self-care (01) | LOC: WOUND 11:05 | PROVIDERS: ATTEND Nurse Practitioner Family | DX: S97.82XA Crushing injury of left foot, initial encounter (principal); J44.9 Chronic obstructive pulmonary disease, unspecified | CPT/HCPCS: 99213 ==

== ENCOUNTER 2019-02-08 11:05 | Outpatient (CLI) | END 2019-02-08 11:06 | disposition home or self-care (01) | LOC: WOUND 11:05 | PROVIDERS: ATTEND Nurse Practitioner Family | DX: S97.82XA Crushing injury of left foot, initial encounter (principal); J44.9 Chronic obstructive pulmonary disease, unspecified ==

== ENCOUNTER 2019-02-10 15:52 | Outpatient (CLI) | END 2019-02-10 15:53 | disposition home or self-care (01) | LOC: RHC-LAB 15:52 | PROVIDERS: ATTEND General Practice | DX: J02.9 Acute pharyngitis, unspecified (principal); R05 Cough | CPT/HCPCS: 87502; 87651 ==

== ENCOUNTER 2019-02-20 12:02 | Inpatient (IN) ==
[2019-02-20] MEDS ORDERED: DUONEB NEB STA ×2 (12:15→13:31)
[2019-02-20] MEDS ORDERED: PREDNISONE PO STA (12:16)
--- NOTE | 2019-02-20 12:51 | CT ---
EXAM: Noncontrast chest CT HISTORY: Cough, chronic obstructive pulmonary disease COMPARISON: 12/31/2018 chest x-ray, 02/24/2018 CT, 05/02/2015 CT TECHNIQUE: Axial noncontrast CT of the chest with sagittal and coronal reformats. FINDINGS: Extensive emphysematous changes are again seen. Biapical foci of scarring are seen which are stable d ating back to 2014. Right middle lobe prominent consolidation and/or atelectasis is present. Scatte red bilateral tree-in-bud opacities are now seen with multiple patchy areas of superimposed consolida tion, most prominent within the left upper lobe and left lower lobe. No pneumothorax is seen. There are trace pleural effusions. Heart size is normal. Atherosclerotic calcifications are present including coronary arteries. There is a 1.0 cm subcarinal lymph node. IMPRESSION: Extensive emphysematous changes. Scattered bilateral tree-in-bud opacities compatible small airway infection/inflammation. Superimpos ed areas of pneumonia. Prominent right middle lobe pneumonia versus less likely atelectasis. Trace pleural effusions. Atherosclerosis including coronary arteries. Borderline enlarged subcarinal lymph node.
--- NOTE | 2019-02-20 13:22 | ED.PDOC ---
General ED Provider: Dr. CATARINO MARTINEZ Chief Complaint: Respiratory Complaint Stated Complaint: 73 yrs old COPD pt more tired and weak from base line Time Seen by Physician: 12:00 Mode of Arrival: Walk-In Information Source: Patient Exam Limitations: No limitations [facility] Nursing and Triage Documentation Reviewed and Agree: Yes Does patient meet sepsis criteria?: No System Inflammatory Response Syndrome: Not Applicable Sepsis Protocol: For patient's 13 years and over: Temp is 96.8 and below OR 101 and greater Pulse >90 BPM Resp >20/minute Acutely Altered Mental Status Are patient's symptoms suggestive of a new infection, such as: -Pneumonia -Skin, Soft Tissue -Endocarditis -UTI -Bone, Joint Infection -Implantable Device -Acute Abdominal Infection -Wound Infection -Meningitis -Blood Stream Catheter Infection -Unknown Respiratory Complaint Exam - Shortness of Air Complaint/Exam Symptoms Are: Still present Timing: Intermittent Initial Severity: Mild Current Severity: Mild Character: Reports: Dyspnea at rest, Dyspnea on exertion, Orthopnea Aggravating: Reports: Recumbent position Alleviating: Reports: None Associated Signs and Symptoms: Reports: Cough. Denies: Wheezing, Chest pain with cough, Chest pain, Fever, Chills, Diaphoresis, Nasal congestion, Dizziness , Calf pain, Calf swelling, Edema, Rapid breathing, Labored breathing, Decreased intake Related History: Reports: Similar episode History of Healthcare-Acquired Pneumonia: No Pulmonary Embolism Risk Factors: Reports: None Cardiac Risk Factors: Reports: None Pseudomonas Risk Factors: Reports: None, Chronic Lung Disease Tuberculosis Risk Factors: Reports: Chronic Resp. Faliure Home Oxygen Use: Yes (2l) Recent Stress Test: No Recent Echo/LV Function: No Respiratory Distress: None Stridor Present: No Tracheal Deviation: No Subcutaneous Emphysema: No Accessory Muscle Use: No Retractions: Not Present Diminished Breath Sounds: No Prolonged Expiratory Phase: No Unable to Speak Full Sentences: No Fatigue: No Leg Swelling: No Piedad's Sign Present: No Grunting Respirations: No Kussmaul Respirations: No Differential Diagnoses: COPD Exacerbation, Pneumonia, Bronchitis Quality Indicators for AMI: EKG in 10min. Quality Indicators for Cardiac Chest Pain: EKG in 10min. Quality Indicator For Non-Traumatic Chest Pain/Syncope: EKG Performed Review of Systems - Review Of Systems Constitutional: Reports: Malaise, Weakness Eyes: Reports: No symptoms Ears, Nose, Mouth, Throat: Reports: No symptoms Respiratory: Reports: Cough, Short of air Cardiac: Reports: No symptoms GI: Reports: No symptoms : Reports: No symptoms Musculoskeletal: Reports: No symptoms Skin: Reports: No symptoms Neurological: Reports: No symptoms Endocrine: Reports: No symptoms Hematologic/Lymphatic: Reports: No symptoms All Other Systems: Reviewed and Negative Past Medical History - Past Medical History Previously Healthy: No Endocrine: Reports: None Cardiovascular: Reports: None Respiratory: Reports: COPD (pulmonary nodule), Pneumonia Hematological: Reports: None Gastrointestinal: Reports: None Genitourinary: Reports: None Neuro/Psych: Reports: None Musculoskeletal: Reports: None Cancer: Reports: None Last Menstrual Period: menopause - Surgical History General Surgical History: Reports: Unknown - Family History Family History: Reports: Unknown - Social History Smoking Status: Former smoker Hx Substance Use: No Alcohol Screening: None Physical Exam - Physical Exam Appearance: Ill-appearing Ill-appearing: Moderate Pain Distress: Mild Eyes: LULU, EOMI, Conjunctiva clear ENT: Ears normal, Nose normal, Oropharynx normal Respiratory: Breath sounds diminished Cardiovascular: RRR, Pulses normal, No rub, No murmur GI/: Soft, Nontender, No masses, Bowel sounds normal, No Organomegaly Musculoskeletal: Normal strength, ROM intact, No edema, No calf tenderness Skin: Warm, Dry, Normal color Neurological: Sensation intact, Motor intact, Reflexes intact, Cranial nerves intact, Alert, Oriented Psychiatric: Affect appropriate, Mood appropriate Interpretation - Radiology Interpretation Radiology Interpretation By: Radiologist Radiology Results: No acute changes - Blanking Press Operator Rate: Normal Rhythm: Sinus Ectopy: None - EKG Interpretation Rate: Normal Rhythm: Sinus Ectopy: None [place]: NL ST Segment: Normal Re-Evaluation - Re-Evaluation Time of Re-Evaluation: 13:23 Status: Improved Vital Signs Stable: Yes Pain Level: 0 Appearance: NAD Lungs: Clear Skin: Warm and Dry Neuro: Alert and Oriented X3 CV: RRR Physician Notification - Case Discussed Physician Notified: pmd Time of Notification: 13:23 Admit/Transition Orders Entered by ED Provider: Yes Admit To: Inpatient Critical Care Note - Critical Care Note Total Time (mins): 0 Course - Course Hematology/Chemistry: 02/20/19 12:35 02/20/19 12:35 Orders, Labs, Meds: Lab Review 02/20/19 02/20/19 02/20/19 12:16 12:35 12:35 WBC 9.79 RBC 3.90 L Hgb 10.9 L Hct 35.0 L MCV 89.7 MCH 27.9 MCHC 31.1 L RDW Coeff of Shayy 12.9 Plt Count 173 Immature Gran % (Auto) 0.4 Neut % (Auto) 85.8 Lymph % (Auto) 5.9 L [place] % (Auto) 7.6 Eos % (Auto) 0.1 Baso % (Auto) 0.2 Immature Gran # (Auto) 0.0 Neut # (Auto) 8.4 H Lymph # (Auto) 0.6 Redwood # (Auto) 0.7 Eos # (Auto) 0.0 Baso # (Auto) 0.0 Puncture Site Lb O2 Saturation 97.0 ABG pH 7.541 H* ABG pCO2 55.1 H ABG pO2 86.0 ABG HCO3 47.2 H ABG Total CO2 49 H ABG Base Excess 25 H O2 Delivery Device Nc Oxygen Liter Flow 2.00 Sodium 136.3 Potassium 2.57 L* Chloride 84.3 L Carbon Dioxide 45.2 H* Anion Gap 9.37 BUN 15.7 Creatinine 0.51 L Estimated GFR (MDRD) 118.00 BUN/Creatinine Ratio 30.78 Glucose 139.5 H Calcium 8.01 L Total Bilirubin 0.45 AST 29.0 ALT 14.2 Alkaline Phosphatase 76.4 Total Creatine Kinase < 20.0 L Troponin I < 0.012 Total Protein 5.64 L Albumin 3.10 L Globulin 2.54 Albumin/Globulin Ratio 1.22 Orders Category Date Time Status ABG DRAW REQUEST Stat CARDIO 02/20/19 12:16 Completed EKG-(ED ONLY) Stat CARDIO 02/20/19 12:15 Completed NEBULIZER TREATMENT Stat CARDIO 02/20/19 12:15 Completed ABG Stat LAB 02/20/19 12:16 Completed CBC W/ AUTO DIFF Stat LAB 02/20/19 12:35 Completed COMPREHENSIVE METABOLIC PANEL Stat LAB 02/20/19 12:35 Completed CREATINE KINASE Stat LAB 02/20/19 12:35 Completed TROPONIN I Stat LAB 02/20/19 12:35 Completed Ipratropium/Albuterol Neb [Duoneb] MEDS 02/20/19 12:15 Discontinued 1 vial NEB ONCE STA Prednisone MEDS 02/20/19 12:16 Discontinued 40 mg PO ONCE STA CT CHEST W/O CONTRAST Stat RADS 02/20/19 12:15 Completed Medications Discontinued Medications Generic Name Dose Route Start Last Admin Trade Name Oumou PRN Reason Stop Dose Admin Albuterol/Ipratropium 1 vial 02/20/19 12:15 02/20/19 12:51 Duoneb NEB 02/20/19 12:16 1 vial ONCE STA Administration Prednisone 40 mg 02/20/19 12:16 02/20/19 12:38 Prednisone PO 02/20/19 12:17 40 mg ONCE STA Administration Vital Signs: Temp Pulse Resp BP Pulse Ox 02/20/19 12:03 99.5 F 104 H 24 91/56 L 90 L Departure - Departure Time of Disposition: 13:25 Disposition: ADMITTED INPATIENT Discharge Problem: Hypokalemia Instructions: Hypokalemia (ED), COPD (Chronic Obstructive Pulmonary Disease) ( ED) Condition: Good Pt referred to PMD for follow-up: Yes IPMP verified?: No Additional Instructions: Please call your Family Physician as soon as possible to schedule a follow-up appointment. Allergies/Adverse Reactions: Allergies No Known Allergies Allergy (Verified 02/20/19 12:10) Disposition Discussed With: Patient, Family
[2019-02-20] MEDS ORDERED: K-DUR PO STA (13:27)
[2019-02-20] MEDS ORDERED: POTASSIUM CHLORIDE PREMIX RUN 10 MEQ in PREMIX 100 ML WATER 1 BAG IV STA (13:27)
[2019-02-20] MEDS ORDERED: ZOSYN 3.375 GM 3.375 GM in SODIUM CHLORIDE 50 ML IV STA (13:30)
[2019-02-20] MEDS ORDERED: SODIUM CHLORIDE 1,000 ML IV SCH (13:30)
[2019-02-20] MEDS ORDERED: POTASSIUM CHLORIDE PREMIX RUN 100 ML IV ONE (13:54)
[2019-02-20 15:02] VITALS: BMI 16.5
[2019-02-20] MEDS ORDERED: INFUVITE ADULT IV ONE (15:58)
[2019-02-20] MEDS: ZOSYN 3.375 GM 3.375 GM in SODIUM CHLORIDE 50 ML IV SCH ×2 (16:00→17:59)
[2019-02-20] MEDS: INFUVITE ADULT 10 ML in D5%-1/2NS-KCL 40 MEQ/L IV SOL 1,000 ML IV SCH (16:00)
[2019-02-20] MEDS: DUONEB NEB SCH ×2 (17:57→23:18)
[2019-02-20] MEDS: COZAAR ONE ×2 (20:16→20:19)
[2019-02-20] MEDS: CRESTOR PO SCH (20:16)
[2019-02-20] MEDS ORDERED: NON-FORMULARY MEDICATION (Losartan Potassium [Losartan Potassium] 50 MG) PO SCH (21:00)
[2019-02-21] MEDS: ZOSYN 3.375 GM 3.375 GM in SODIUM CHLORIDE 50 ML IV SCH ×5 (00:06→23:52)
[2019-02-21] MEDS: DUONEB NEB SCH ×4 (04:44→23:15)
[2019-02-21] MEDS ORDERED: INFUVITE ADULT IV ONE (11:52)
[2019-02-21] MEDS: INFUVITE ADULT 10 ML in D5%-1/2NS-KCL 40 MEQ/L IV SOL 1,000 ML IV SCH (11:58)
[2019-02-21] MEDS ORDERED: SOLU-CORTEF 100 MG 100 MG in SODIUM CHLORIDE 100 ML IV ONE (13:11)
[2019-02-21] MEDS ORDERED: SOLU-CORTEF 100 MG ONE (14:01)
[2019-02-21] MEDS: CRESTOR PO SCH (20:13)
[2019-02-21] MEDS ORDERED: COZAAR PO SCH (21:00)
[2019-02-22] MEDS: DUONEB NEB SCH ×4 (04:45→23:40)
[2019-02-22] MEDS: ZOSYN 3.375 GM 3.375 GM in SODIUM CHLORIDE 50 ML IV SCH ×2 (05:21→12:04)
[2019-02-22] MEDS ORDERED: INFUVITE ADULT IV ONE (07:02)
[2019-02-22] MEDS ORDERED: POTASSIUM CHLORIDE 20 MEQ VIAL IV ONE (08:36)
[2019-02-22] MEDS: INFUVITE ADULT 10 ML in D5%-1/2NS-KCL 40 MEQ/L IV SOL 1,000 ML IV SCH (08:40)
--- NOTE | 2019-02-22 08:57 | PCM.CONS ---
CONSULTING PROVIDER: Dr. SOTO MOLINA ATTENDING PROVIDER: Dr. CARL KLINE[facility] DATE OF SERVICE: 02/22/19 SUBJECTIVE: This 73 year old WHITE/ F was hospitalized 02/20/19. The patient was seen on consultation for shortness of breath, chronic bronchitis and COPD. She quit smoking 2 years ago. REVIEW OF SYSTEMS: CONSTITUTIONAL: No night sweats. No fatigue, malaise, lethargy. No fever or chills. HEENT: Eyes: No visual changes. No eye pain. No eye discharge. ENT: No runny nose. No epistaxis. No sinus pain. No odynophagia. No congestion. RESPIRATORY: No cough, no congestion. No hemoptysis. No shortness of breath. CARDIOVASCULAR: No angina symptoms. No CHF symptoms. No atypical chest pain for CAD. No palpitations. No orthopnea. GASTROINTESTINAL: No abdominal pain. No nausea or vomiting. No diarrhea or constipation. No hematemesis. No hematochezia. GENITOURINARY: No urgency. No frequency. No dysuria. No hematuria. No obstructive symptoms. No discharge. No pain. No significant abnormal bleeding. MUSCULOSKELETAL: No musculoskeletal pain; no joint swelling. NEUROLOGICAL: Awake, alert, oriented to time, place and person. No headache. No neck pain. No syncope. No seizures. No dizziness. PSYCHIATRIC: Not anxious. No depression. No suicidal thoughts. No homicidal thoughts. SKIN: No rash. No lesions. No wounds. ENDOCRINE: No unexplained weight loss. No weight gain. HEMATOLOGIC/LYMPHATIC: No anemia. No purpura. No petechiae. No prolonged or excessive bleeding. No palpable lymph nodes. PHYSICAL EXAMINATION: GENERAL: The patient is awake, alert and oriented, lying in bed in no distress. VITAL SIGNS: Temperature 98.1 F, Pulse 80, Respiratory Rate 24, BP 150/82, Pulse Ox 93% HEENT: Head normocephalic, atraumatic. Eyes: Extraocular muscles are intact. Pupils are equal, round and reactive to light and accommodation. Ears: No lesions. Nose appeared normal. Throat: No exudate or erythema. NECK: Supple. No JVD, no carotid bruit. No lymphadenopathy or thyromegaly. LUNGS: Decreased breath sounds bilaterally. Clear to auscultation. Percussion note normal. Chest symmetrical. HEART: S1, S2, no S3. No murmurs. No cyanosis or clubbing. No ascites. Pulses: Dorsalis pedis and posterior tibial pulses +1 to +2 both sides. ABDOMEN: Soft. Non-tender. Bowel sounds active. No CVA tenderness. No mass felt. EXTREMITIES: No edema. Full range of motion of all extremities, equal. NEUROLOGIC: No focal deficit. Cranial nerves II through XII are grossly intact. No headache, no double vision or headache. SKIN: Warm and dry. Intact. Turgor-normal. LYMPHATIC: No palpable lymph nodes/no lymphedema. MUSCULOSKELETAL: Normal joints with no swelling. Muscle tone is normal. LAB REVIEW: 02/22/19 05:15 02/22/19 05:15 02/22/19 05:15: Sodium 139.6, Potassium 3.91, Chloride 94.7 L, Carbon Dioxide 39.2 H, Anion Gap 9.61, BUN 12.3, Creatinine 0.43 L, Estimated GFR (MDRD) 143.00 , BUN/Creatinine Ratio 28.60, Glucose 116.2 H, Calcium 7.86 L, Total Bilirubin 0.29, AST 35.0, ALT 17.5, Alkaline Phosphatase 72.0, Total Protein 5.67 L, Albumin 2.99 L, Globulin 2.68, Albumin/Globulin Ratio 1.11 02/22/19 05:15: WBC 8.00, RBC 4.12 L, Hgb 11.2 L, Hct 38.5, MCV 93.4, MCH 27.2, MCHC 29.1 L, RDW Coeff of Shayy 13.6, Plt Count 247 D, Neutrophils % (Manual) 84.0 H, Lymphocytes % (Manual) 13.0, Monocytes % (Manual) 3.0, Anisocytosis Not present ASSESSMENT: 1. Acute bronchitis 2. COPD 3. History of hypertension RECOMMENDATIONS/PLAN: 1. Cardiovascular status is stable, no evidence of CHF 2. Pulmonary rehab recommended 3. Consult discussed 4. Echo to evaluation LV function 5. Losartan 150mg at bedtime I don't think that Cardiovascular status has anything to do with shortness of breath at present time. Plan and coordination of the patient's care discussed in the presence of Hand Worker and Nurse. CONDITION: Stable, will follow. SCRIBED BY: Mellissa UGALDE scribed while in presence of service performed by Dr. SOTO MOLINA on 02/22/19 (0801)
[2019-02-22] MEDS ORDERED: INFUVITE ADULT 10 ML in D5%-1/2NS-KCL 20 MEQ/L IV SOL 1,000 ML IV SCH (09:00)
--- NOTE | 2019-02-22 11:07 | PN ---
DATE OF SERVICE: 02/20/19 SUBJECTIVE: 73-year-old female who presented to the emergency room because of shortness of breath in the last two days Thursday and Thursday. She didn't have any chest pain. No fever. No abdominal pain. She has more coughing but this patient has chronic respiratory failure with chronic oxygen therapy at home. Her appetite is decreased. She has some body aches. I will order for quanitative influenza A and B, was given to the nurse, Elvie. OBJECTIVE: LUNGS: No air exchange which is a chronic problem. HEART: Normal sinus rhythm. ABDOMEN: Nontender. The patient denied any chest or abdominal pain. No change in bowel habits. : No pain on urination. The patient claims that she is somewhat better compared to when she presented to the emergency room. Chest CT showed tree in bud opacities compatible with small airway infection, superimposed areas of pneumonia. Tree in bud may be fungal problems and will discuss that with the radiologist tomorrow. The patient's EKG had a prolonged QT interval so I did talk to the emergency room physician not to give any antibiotic that will prolong that interval more. No pain in legs bilaterally and no tenderness. MTDD
--- NOTE | 2019-02-22 11:53 | CONS ---
DATE OF CONSULTATION: 02/21/19 REASON FOR CONSULTATION: Shortness of breath HISTORY OF PRESENT ILLNESS: 73 year old white female hospitalized on 02/20/19 with complaint of shortness of breath, cough and congestion. The patient has known chronic lung disease, she has quit smoking 2 years ago. The patient's ABG showed pO2 86, pCo2 55, pH 7.54 with 97% saturation on 2 liters of oxygen with HCO3 of 47. The patient has compensated respiratory acidosis. The patient's Potassium was 2.5, Troponin was negative. Sodium was normal. This morning the Potassium is 3.1. The patient's telemetry does nt show any significant arrhythmias. Coughing more frequent with bouts of shortness of air-wears O2 at all times at 2 liters nasal cannula. Appetite is poor. Color Ashen. Complains of body aches. REVIEW OF SYSTEMS: CONSTITUTIONAL: No night sweats. Mild Fatigue. No fever or chills. HEENT: Eyes: No visual changes. No eye pain. No eye discharge. ENT: No sinus drainage. No epistaxis. No sinus pain. No sore throat. No odynophagia. No ear pain. No congestion. RESPIRATORY: Cough intermittent, productive and white color sputum, no congestion. No hemoptysis. No shortness of breath. CARDIOVASCULAR: No angina symptoms. No CHF symptoms. No atypical chest pain for CAD. No palpitations. No orthopnea. GASTROINTESTINAL: No abdominal pain. No nausea or vomiting. No diarrhea or constipation. No hematemesis. No hematochezia. GENITOURINARY: No urgency. No frequency. No dysuria. No hematuria. No obstructive symptoms. No discharge. No pain. No significant. Stress incontinence with cough. No abnormal bleeding. MUSCULOSKELETAL: No musculoskeletal pain. No joint swelling. NEUROLOGICAL: No headache. No neck pain. No syncope. No seizures. No dizziness. PSYCHIATRIC: Not anxious. No depression. No suicidal thoughts. No homicidal thoughts. SKIN: No rash. No lesions. No wounds. ENDOCRINE: Weight loss. No weight gain. Decreased appetite. HEMATOLOGIC/LYMPHATIC: No anemia. No purpura. No petechiae. No prolonged or excessive bleeding. No palpable lymph nodes. MEDICATIONS: [id number] PO bedtime Losartan 50mg PO bedtime Ipratropium-Albuterol 3ml IH bedtime ALLERGIES: No known allergies PAST MEDICAL HISTORY: COPD Chronic respiratory failure-Home O2 Emphysema DJD spine Hypertension Dyslipidemia CAD PAD History of tobacco use, Quit march 2016 PAST SURGICAL HISTORY: Cholecystectomy SOCIAL/PERSONAL/FAMILY HISTORY: The patient is and lives with the . She is a former smoker, she quit 2 years ago. No alcohol or illicit drug use. PHYSICAL EXAMINATION: GENERAL: The patient looks emaciated. Her BMI is 16. VITAL SIGNS: Temperature 97.6, pulse 70, respiratory rate 19, blood pressure 130 /48 and pulse ox 99% on 2 liters. HEENT: Head normocephalic, atraumatic. Eyes: Extraocular muscles are intact. Pupils are equal, round and reactive to light and accommodation. Ears: No lesions. Nose appeared normal. Throat: No exudate or erythema. NECK: Supple. No JVP, no carotid bruit. No lymphadenopathy or thyromegaly. LUNGS:Decreased breath sounds. Poor air entry. Clear to auscultation. Percussion note normal. Chest symmetrical. The patient has pigeon shaped chest. HEART: S1, S2, no S3. No murmurs. No cyanosis or clubbing. No ascites. Pulses: Dorsalis pedis and posterior tibial pulses +1 bilaterally. ABDOMEN: Soft. Nontender. Bowel sounds active. No CVA tenderness. No mass felt. EXTREMITIES: No edema. Full range of motion of all extremities, equal. NEUROLOGIC: No focal deficit. Cranial nerves II through XII are grossly intact. No headache, no double vision or headache. SKIN: Dry. Intact. Turgor - normal. LYMPHATIC: No palpable lymph nodes/no lymphedema. MUSCULOSKELETAL: Normal joints with no swelling. Muscle tone is normal. LABS: Hgb 10.9, hct 36, WBC 7,000 normal differential, potassium 3.1. BUN 15.7, creatinine 0.5, GFR 118, lactic acid 1.29, Flu A and B negative. Throat culture strep negative, Sputum culture normal emre, moderate growth. Sputum gram 2+ WBC , 1+ gram positive cocci. Blood culture negative. Chest CT extensive emphysematous changes, Superimposed areas of pneumonia, Small airway infection/ inflammation, Prominent right mid lobe pneumonia, Trace pleural effusions, Atherosclerosis coronary arteries. and Borderline enlarged subcarinal lymph nodes. ASSESSMENT: 1. Severe emphysema 2. COPD with chronic lung disease with chronic bronchitis 3. The patient has mild anemia,chronic 4. Chronic respiratory failure with chronic respiratory acidosis compensated 5. Quit smoking 2 years ago 6. Hypertension 7. CAD 8. PAD RECOMMENDATIONS: 1. Agreed with present management with NEBS, Steroids and antibiotics. 2. Will do echocardiogram to evaluate her LV function. I think mainly the shortness of breath is from chronic lung problems. 3. We will do PFT 4. Advised would benefit from pulmonary rehab. Referral initiated. 5. Increase Cozaar to 100mg PO HS Thanks for referral, will follow. MTDD
[2019-02-22] MEDS: CRESTOR PO SCH (20:20)
[2019-02-22] MEDS: COZAAR PO SCH (20:20)
[2019-02-22] MEDS ORDERED: COZAAR PO SCH ×2 (21:00)
[2019-02-23] MEDS: INFUVITE ADULT 10 ML in D5%-1/2NS-KCL 40 MEQ/L IV SOL 1,000 ML IV SCH ×3 (01:32→18:24)
[2019-02-23] MEDS ORDERED: INFUVITE ADULT IV ONE ×2 (02:27→18:18)
[2019-02-23] MEDS: DUONEB NEB SCH ×4 (05:10→23:23)
[2019-02-23] MEDS: COZAAR PO SCH ×2 (09:07→20:38)
--- NOTE | 2019-02-23 12:41 | ECHO2D ---
Date of Exam: 02/23/19 Ordering Physician: DR. CARL KLINE Room # : 122 Reason for Echo: DYSLIPIDEMIA, HTN, SEVERE COPD M-Mode Normal Adult Results LV Dimensions Normal Adult Results AoV Opening excursions >1.6 1.4 LVEDD-base- 3.5-5.8 3.6 Ao root dimensions 2.0-3.7 3.2 LVESD-base- 3.1-4.6 L. Atrium dimensions 1.9-3.8 3.6 Post. Wall thickness 0.8-1.1 1.1 IV septum (thickness) 0.7-1.2 1.0 Post. Wall excursion 0.72-1.3 NORMAL Septal motion NORMAL Systolic motion R. Ventricular cavity 1.5-2.0 3.0 LVEF 60% 52% Paradoxical septal wall motion NORMAL 2-D : 2-D M Mode Echocardiogram was performed using apical four chamber and left parasternal long and short axis views. Tricuspid and aortic valves appear to be normal. Contractility of the left ventricle seems to be normal, so is the cavity size. Left atrial cavity size and aortic root appear to be normal. There is no pericardial effusion. There is no thrombus noted in the left ventricular or left aortic cavity. Mitral valve prolapse noted left parasternal long axis and apical four chamber view. Right ventricle cavity enlarged. M-MODE: MV: NORMAL AV: GOOD VALVE LEAFLET SEPARATION, NO STENOSIS TV: NORMAL PV: NORMAL CHAMBER SIZE: ENLARGED RIGHT VENTRICLE CAVITY WALL MOTION: NORMAL PERICARDIUM: NORMAL INTERPRETATION: 1. MITRAL VALVE PROLAPSE LATE SYSTOLIC 2. ENLARGED RIGHT VENTRICLE CAVITY 3. NORMAL LEFT VENTRICLE CONTRACTILITY 4. NORMAL LEFT VENTRICLE SIZE MTDD
[2019-02-23] MEDS: LOVENOX SUBCUT SCH (13:48)
--- NOTE | 2019-02-23 14:55 | HP ---
DATE OF SERVICE: 02/20/19 CHIEF COMPLAINT: Increasing shortness of breath HISTORY OF PRESENT ILLNESS: The patient has chronic obstructive lung disease with chronic respiratory failure on home oxygen continuously. The patient had finally stopped smoking some two years ago. The patient noted that in the last two days prior to presentation to the emergency room that she had more coughing episodes with frequent bouts of increasing shortness of breath in spite of the oxygen. Her appetite had decreased and more or less slightly cyanotic at the emergency room. She is alert and complains of some body aches. she denies any chills or high fever. The patient at the emergency room was noted to have a temperature of 99.5, pulse 104, respiratory rate 24, oxygen saturation 90% and blood pressure 91/56. Level of pain or discomfort 4 on a scale of 1-10. 5'4 and 91 pounds, 4.[address] showed bilateral scattered tree-in-bud opacities compatible with more airway infection or inflammation. Superimposed areas of pneumonia. Prominent right middle lobe pneumonia versus atelectasis, trace of pleural effusion and extensive emphysematous changes. The patient was admitted for increasing shortness of breath and pneumonitis. The patient was admitted last December 2018 because of cellulitis left foot with a hematoma caused by a big dog stepping on her foot. Pedal pulses were absent then. PAST PERSONAL HISTORY: The patient has severe COPD and on chronic home oxygen therapy. She had pneumonia 2015 superimposed on the COPD. Also had bilateral hernia zoster and has resolved with no significant post herpetic neuralgia. Previous cholecystectomy CVA with complete resolution Coronary artery disease Hypertension FAMILY HISTORY: Father had myocardial infarction and from the [place] Mother had senile dementia Sister has diabetes mellitus SOCIAL HISTORY: The patient is and resides with her . She stopped smoking 22 to 23 months ago. Denies any alcohol use or illicit drug use. MEDICATIONS: Crestor 10mg daily at bedtime Ipratropium/Albuterol 3ml ampul NEB at bedtime Losartan 50mg daily ALLERGIES: No known drug allergies. REVIEW OF SYSTEMS: CONSTITUTIONAL: The patient had no fever and no chills but has fatigue. The patient had low grade temperature in the emergency room 99.5. PROGRAM DIRECTOR SCOUTING: No headaches. No syncopal episode. No seizure events. VISUAL: Negative RESPIRATORY: The patient has chronic respiratory failure secondary to COPD secondary to chronic smoking. No history of hemoptysis. The patient is on oxygen at 2 liters per minute. CARDIOVASCULAR: The patient denies any chest pain but does have increasing shortness of breath more so with exertion. Wonders about pulmonary hypertension in this individual GASTROINTESTINAL: Appetite decreased by no vomiting, nausea or diarrhea. GENITOURINARY: No burning on urination. MUSCULOSKELETAL: The patient had generalized weakness probably secondary the respiratory failure and dyspnea on exertion ENDOCRINE: Negative INTEGUMENT: No rash, pruritus or subcutaneous ecchymosis HEMATOLOGIC: No history of prolonged bleeding or spontaneous bleeding PSYCHIATRIC: Affect is normal in spite of her problems PHYSICAL EXAMINATION: GENERAL: 73 year old female admitted to the hospital by the emergency room because of increasing shortness of breath in the last two days with increasing cough. The patient also has increasing generalized weakness. Chest CT does show superimposed pneumonia with severe emphysematous changes. VITAL SIGNS: Temperature 99.5, pulse 104, blood pressure 91/56, respiratory rate 24, oxygen saturation 90 on 2 liters of oxygen. 5'4, 91 pounds 4.34 ounces. HEAD: Unremarkable. Scalp has no active dermatitis. FACE: Symmetrical and equal. No facial weakness and remarkable tenderness to palpation under pressure in the frontal and maxillary sinus areas. EYES: Pupils equal/reactive to light. Conjunctivae not pale. Sclerae not icteric. 3mm in size. MOUTH: Unremarkable THROAT: No inflammation, tumors or exudate. NECK: No masses. No bruit. No tenderness. No rigidity. CHEST: Symmetrical and equal with limited expansion. Ribs are prominent. The patient is thin. LUNGS: Breath sounds are not audible. No rales or wheezing. There is no air exchange. HEART: Audible and regular with good tones. No murmurs. ABDOMEN: Flat, Soft with no remarkable tenderness. No guarding. Bowel sounds are active. No masses palpable. No bruit. EXTERNAL GENITALIA: Not examined RECTAL: Not performed LOWER EXTREMITIES: Symmetrical and equal. Ulceration in the left anterior surface of the foot is almost healed. Pedal pulses are absent. UPPER EXTREMITIES: Symmetrical and equal ASSESSMENT: 1. Exacerbation of chronic respiratory failure 2. Pneumonia 3. COPD, severe 4. Chronic tobacco use and abuse, stopped 23 months ago 5. Hypertension, controlled 6. Dyslipidemia, on medication PROGNOSIS: Guarded to Poor TIME SPENT: GREATER THAN 65 MINUTES MTDD
[2019-02-23] MEDS: CRESTOR PO SCH (20:37)
[2019-02-24] MEDS: DUONEB NEB SCH ×4 (04:34→22:03)
[2019-02-24] MEDS: LOVENOX SUBCUT SCH (08:28)
[2019-02-24] MEDS: COZAAR PO SCH ×2 (08:28→21:04)
[2019-02-24] MEDS ORDERED: DECADRON 4 MG/ML SDV IM STA (09:01)
[2019-02-24] MEDS: PREDNISONE PO SCH (09:45)
[2019-02-24] MEDS ORDERED: INFUVITE ADULT IV ONE (14:19)
[2019-02-24] MEDS: INFUVITE ADULT 10 ML in D5%-1/2NS-KCL 40 MEQ/L IV SOL 1,000 ML IV SCH (14:24)
--- NOTE | 2019-02-24 14:31 | PN ---
DATE OF SERVICE: 02/21/19 SUBJECTIVE: The patient is alert not dyspneic or tachypneic. When I walked into the room she just came back from the bathroom. Every time she goes to the bathroom she has more shortness of breath. VITALS: Temperature 98.6, pulse 77, blood pressure 125/61, respiratory rate 14. I did see her about 7-8:00 in the evening. No vital signs at that point. The patient about 8:00pm had a respiratory rate of 22. She is cyanotic, no chest pain. LUNGS: No air exchange audible HEART: Normal sinus rhythm, no murmur LOWER EXTREMITIES: No edema. This patient is receiving Zosyn 3.375gram Q 6 hours which is for her pneumonia. The patient had no adverse reaction to the antibiotics. CONDITION: Unchanged. MTDD
--- NOTE | 2019-02-24 14:44 | PN ---
DATE OF SERVICE: 02/23/19 SUBJECTIVE: The patient still has shortness of breath more so with exertion of just going to the bathroom. This patient was given a Solu-Cortef yesterday but did not improve the problem. I am afraid that this patient probably has pulmonary hypertension. There is no reason to do a right sided catheterization maybe a color flow will tell us a little bit about the pulmonary pressure. The allergy consultation is requested and that might help me with determining all the reason for the shortness of breath. This patient had a severe COPD and had been on chronic respiratory failure for some time and on chronic oxygen therapy, 2 liters per minute per nasal cannula. There is no audible air exchange on auscultation. The patient remained normal sinus rhythm. The abdomen is nontender. LOWER EXTREMITIES: No tenderness in the calf muscles LABS: Showed mild anemia 11.2 gram of hgb. Normal sodium and potassium, Chlorides slightly low but not clinically significant. Co2 is still high. This is not any surprise. GFR 143 probably not guest experience representative of what the patient is- she is more than 68 years old and she is also very thin. Total protein and albumin had been low on admission and remained low on repeat examination. MTDD
[2019-02-24] MEDS: CRESTOR PO SCH (21:04)
[2019-02-25] MEDS: DUONEB NEB SCH ×4 (04:43→23:13)
[2019-02-25] MEDS ORDERED: INFUVITE ADULT IV ONE (07:51)
[2019-02-25] MEDS: INFUVITE ADULT 10 ML in D5%-1/2NS-KCL 40 MEQ/L IV SOL 1,000 ML IV SCH (08:00)
[2019-02-25] MEDS: COZAAR PO SCH ×2 (08:00→21:33)
[2019-02-25] MEDS: LOVENOX SUBCUT SCH (08:01)
[2019-02-25] MEDS: PREDNISONE PO SCH (08:01)
--- NOTE | 2019-02-25 13:23 | CONS ---
DATE OF SERVICE: 02/24/19 CONSULT FOLLOWUP SUBJECTIVE: The patient was seen onconsultation on followup for shortness of breath. The patient's COPD seems to be stable but not improving much as she is willing to join pulmonary rehab after she is discharged. REVIEW OF SYSTEMS: CONSTITUTIONAL: No night sweats. No fatigue, malaise, lethargy. No fever or chills. HEENT: Eyes: No visual changes. No eye pain. No eye discharge. ENT: No runny nose. No epistaxis. No sinus pain. No sore throat. No odynophagia. No ear pain. No congestion. RESPIRATORY: No cough, no congestion. No hemoptysis. No PND, no orthopnea. CARDIOVASCULAR: No angina symptoms. No CHF symptoms. No atypical chest pain for CAD. No palpitations. Shortness of breath on minimal exertion. GASTROINTESTINAL: No abdominal pain. No nausea or vomiting. No diarrhea or constipation. No hematemesis. No hematochezia. GENITOURINARY: No urgency. No frequency. No dysuria. No hematuria. No obstructive symptoms. No discharge. No pain. No significant abnormal bleeding. MUSCULOSKELETAL: No musculoskeletal pain. No joint swelling. No arthritis. NEUROLOGICAL: No headache. No neck pain. No syncope. No seizures. No dizziness. PSYCHIATRIC: Not anxious. No depression. No suicidal thoughts. No homicidal thoughts. SKIN: No rash. No lesions. No wounds. ENDOCRINE: No unexplained weight loss. No weight gain. HEMATOLOGIC/LYMPHATIC: No anemia. No purpura. No petechiae. No prolonged or excessive bleeding. No palpable lymph nodes. PHYSICAL EXAMINATION: VITAL SIGNS: Temperature 98.4, pulse 74/min, respiratory rate 18/min, BP 115/56 , pulse ox 97% on 2L. HEENT: Head normocephalic, atraumatic. Eyes: Extraocular muscles are intact. Pupils are equal, round and reactive to light and accommodation. Ears: No lesions. Nose appeared normal. Throat: No exudate or erythema. NECK: Supple. No JVD, no carotid bruit. No lymphadenopathy or thyromegaly. LUNGS: Decreased breath sounds bilaterally but air entry is better than a couple of days ago. The patient does get short of breath on minimal exertion. HEART: S1, S2, no S3. No murmurs. No cyanosis or clubbing. No ascites. Pulses: Dorsalis pedis and posterior tibial pulses +1 to +2 bilaterally. ABDOMEN: Soft. Nontender. Bowel sounds active. No CVA tenderness. No mass felt. EXTREMITIES: No edema. Full range of motion of all extremities, equal. NEUROLOGIC: No focal deficit. Cranial nerves II through XII are grossly intact. No headache, no double vision or headache. SKIN: Not dry. Intact. Turgor - normal. LYMPHATIC: No palpable lymph nodes/no lymphedema. MUSCULOSKELETAL: Normal joints with no swelling. Muscle tone is normal. LABS: Hemoglobin 11.2, hematocrit 38, WBC 8,000, normal differential. Creatinine 0.4, BUN 12, potassium 3.9, glucose 116. ASSESSMENT: 1. SEVERE CHRONIC LUNG DISEASE WITH CHRONIC BRONCHITIS. RECOMMENDATIONS: 1. 1 cc Decadron 2. Give Prednisone 20 mg daily for 3 days and 10 mg p.o. daily after that. The patient has mentioned that she has taken steroids in the past. CONDITION: Stable. MTDD
--- NOTE | 2019-02-25 13:30 | CONS ---
DATE OF SERVICE: 02/23/19 CONSULT FOLLOWUP SUBJECTIVE: The patient was seen and examined today. The patient is feeling the same, shortness of breath with exertion. REVIEW OF SYSTEMS: CONSTITUTIONAL: No night sweats. No fatigue, malaise, lethargy. No fever or chills. HEENT: Eyes: No visual changes. No eye pain. No eye discharge. ENT: No runny nose. No epistaxis. No sinus pain. No sore throat. No odynophagia. No ear pain. No congestion. RESPIRATORY: No cough, no congestion. No hemoptysis. No PND, no orthopnea. CARDIOVASCULAR: No angina symptoms. No CHF symptoms. No atypical chest pain for CAD. No palpitations. Shortness of breath on minimal exertion. GASTROINTESTINAL: No abdominal pain. No nausea or vomiting. No diarrhea or constipation. No hematemesis. No hematochezia. GENITOURINARY: No urgency. No frequency. No dysuria. No hematuria. No obstructive symptoms. No discharge. No pain. No significant abnormal bleeding. MUSCULOSKELETAL: No musculoskeletal pain. No joint swelling. No arthritis. NEUROLOGICAL: No headache. No neck pain. No syncope. No seizures. No dizziness. PSYCHIATRIC: Not anxious. No depression. No suicidal thoughts. No homicidal thoughts. SKIN: No rash. No lesions. No wounds. ENDOCRINE: No unexplained weight loss. No weight gain. HEMATOLOGIC/LYMPHATIC: No anemia. No purpura. No petechiae. No prolonged or excessive bleeding. No palpable lymph nodes. PHYSICAL EXAMINATION: VITAL SIGNS: Temperature 98.2, pulse 80, respiratory rate 15, BP 132/82, pulse ox 98% with 2L. HEENT: Head normocephalic, atraumatic. Eyes: Extraocular muscles are intact. Pupils are equal, round and reactive to light and accommodation. Ears: No lesions. Nose appeared normal. Throat: No exudate or erythema. NECK: Supple. No JVD, no carotid bruit. No lymphadenopathy or thyromegaly. LUNGS: Decreased breath sounds but clear to auscultation. The air entry is not that good. Percussion note normal. Chest symmetrical. HEART: S1, S2, no S3. No murmurs. No cyanosis or clubbing. No ascites. Pulses: Dorsalis pedis and posterior tibial pulses +1 to +2 bilaterally. ABDOMEN: Soft. Nontender. Bowel sounds active. No CVA tenderness. No mass felt. EXTREMITIES: No edema. Full range of motion of all extremities, equal. NEUROLOGIC: No focal deficit. Cranial nerves II through XII are grossly intact. No headache, no double vision or headache. SKIN: Not dry. Intact. Turgor - normal. LYMPHATIC: No palpable lymph nodes/no lymphedema. MUSCULOSKELETAL: Normal joints with no swelling. Muscle tone is normal. The patient had echocardiogram which showed RV cavity enlargement, mitral valve prolapse, normal LV contractility. ASSESSMENT: 1. SEVERE CHRONIC LUNG DISEASE IS THE CAUSE FOR SHORTNESS OF BREATH. THE PATIENT'S CARDIOVASCULAR STATUS SEEMS TO BE NORMAL AT REST WITH NORMAL LV CONTRACTILITY, NORMAL LV EJECTION FRACTION. RECOMMENDATIONS: 1. Recommend pulmonary rehab, discussed with the patient. 2. Will continue the present management with nebs, steroids and antibiotics. PROGNOSIS: Guarded MTDD
--- NOTE | 2019-02-25 16:48 | RS.PTINEVL ---
Subjective - Patient information Date of Evaluation: 02/25/19 Date of Arrival on Unit: 02/20/19 Diagnosis: Hypokalemia, COPD, Pneumonia, Acute Bronchitis Usual Living Arrangement: With Spouse Living Arrangement Comments: Daughter lives at home Home Environment: House Medical History Comments:: Emphysema, COPD, HTN, DJD spine Surgical History: Cholecystectomy Subjective Information/ Patient Comments:: Mrs. Lozano reports she has oxygen at home. States she gets winded with most activity. Denies any recent falls at home. States she has not walked since being admitted to the hospital. States she has gotten up to the [facility] nearby. - Level of function Prior to this admission, the patient could do the following:: Independent Selfcare, Independent ADL's, Independent Ambulation (without assitive device) Current Equipment Used at Home: Home oxygen, walker Interventions - Objective Patient Orientation: Person, Place, Time, Situation Current Interventions: IV's, Oxygen, Telemetry Range of Motion - ROM Right Upper Extremity AROM: WFL's Left Upper Extremity AROM: WFL's Right Lower Extremity AROM: WFL's Left Lower Extremity AROM: WFL's Muscle Strength - Muscle Strength Right Upper Extremity Strength: Mild Weakness Left Upper Extremity Strength: Mild Weakness Right Lower Extremity Strength: Mild Weakness Left Lower Extremity Strength: Mild Weakness Balance - Sitting Balance and Reactions Static Sitting Balance: Good Dynamic Sitting Balance: Good - Standing Balance and Reactions Static Standing Balance: Good Dynamic Standing Balance: Good (-) Functional Mobility - Bed Mobility Scooting: Independent Supine to Sit: Independent Sit to Supine: Independent Comments:: Pt presents lying in bed. O2 98%. Upon sitting up on side of bed, O2 96%. - Transfers Sit to Stand: Supervision Stand to Sit: Supervision Stand Pivot Transfers: Supervision - Safety Awareness Safety Awareness: Good JAQUELINE INDEX SCORE: 83 Ambulation - Ambulation Weight Bearing Status: FWB Assistive Device Used: No Assistive Device Orthotic/Prosthetic Device: No Distance: 40 feet X 2 Assistance needed with Ambulation: CGA (mainly for oxygen tank and IV pole) Quality of Ambulation: Patient demonstrates no loss of balance. Ambulates a straight path. Does demonstrates more labored breathing with ambulation. Gait Deviations: Narrow Based gait, Short stride Ambulation Comments: Upon return to room, O2 88% Factors Affecting Ambulation: Breathing/O2 Saturation Treatment time - Time with patient Length of Evaluation: 16 mins Total treatment time: 16 Assessment - Assessment Candidate for Swing Bed for Therapy Services?: No, patient scores 83 on Jaqueline Index, which is high functioning. Average score for Discharging a Swing Bed patient is 81-83. Comments: Ms. Lozano is independent with bed mobility. She is steady and safe with transfers. Ambulation without assisitive device without loss of balance or difficulty other than breathing. Patient presents to be a good candidate for Home Health therapy. Evaluation Complexity: HISTORY: Medium (COPD, Pneumonia, Bronchitis, Emphysema, HTN, DJD spine), EXAM OF BODY SYSTEMS: Medium (O2, ROM, MS, mobility, balalnce) , CLINICAL PRESENTATION: Medium, CLINICAL DECISION MAKING: Medium Plan Duration of Treatment: One Time Treatment Anticipated Discharge Destination: Home Treatment Diagnosis (ICD 10 Codes): M62.81 Has the Physician been added for Co-signature?: Yes
[2019-02-25] MEDS: CRESTOR PO SCH (21:34)
[2019-02-26] MEDS ORDERED: INFUVITE ADULT IV ONE ×2 (00:08→14:52)
[2019-02-26] MEDS: INFUVITE ADULT 10 ML in D5%-1/2NS-KCL 40 MEQ/L IV SOL 1,000 ML IV SCH ×2 (00:12→15:43)
[2019-02-26] MEDS: DUONEB NEB SCH ×4 (04:30→23:20)
[2019-02-26] MEDS: LOVENOX SUBCUT SCH (08:19)
[2019-02-26] MEDS: COZAAR PO SCH ×2 (08:19→20:51)
[2019-02-26] MEDS: PREDNISONE PO SCH (08:19)
[2019-02-26] MEDS ORDERED: PREDNISONE PO SCH ×2 (09:01→11:00)
--- NOTE | 2019-02-26 17:02 | DI ---
EXAM: Chest two views HISTORY: Shortness of air COMPARISON: 12/31/2018 TECHNIQUE: Two views of the chest were performed FINDINGS: Emphysematous change. Patchy bilateral perihilar and basilar infiltrates. No pleural eff usion. No pneumothorax. Heart normal in size. Mediastinal contour normal, noting atherosclerosis. IMPRESSION: 1. Patchy bilateral perihilar and basilar infiltrates, likely representing pneumonia. Recommend rad iographic follow-up to resolution. 2. Emphysema
[2019-02-26] MEDS: PREVALITE PO SCH (17:59)
[2019-02-26] MEDS: CRESTOR PO SCH (20:51)
[2019-02-27] MEDS: DUONEB NEB SCH ×3 (04:30→17:00)
[2019-02-27] MEDS ORDERED: PREDNISONE PO SCH ×2 (08:00→09:01)
[2019-02-27] MEDS: LOVENOX SUBCUT SCH (08:26)
[2019-02-27] MEDS: COZAAR PO SCH (08:26)
[2019-02-27] MEDS: INFUVITE ADULT 10 ML in D5%-1/2NS-KCL 40 MEQ/L IV SOL 1,000 ML IV SCH (09:07)
[2019-02-27] MEDS: PREVALITE PO SCH (11:53)
[2019-02-27 14:21] VITALS: BP 105/56; TEMP 98.5
--- NOTE | 2019-02-28 07:28 | PN ---
DATE OF SERVICE: 02/24/19 SUBJECTIVE: The patient still has some liquid stool with urination. No abdominal pain. Still do not have the results of the Clostridium difficile at this time. The patient claimed to feel some better. She still is dyspneic but that more or less is useful for her. VITALS: Temperature 98.8, pulse 88, blood pressure 130/71, respiratory rate rate 14, oxygen saturation 95 at 2 liters. LUNGS:I could hear some breath sounds on the posterior lateral sides lower on both lungs. No rales. HEART: Audible with good tones. ABDOMEN: Nontender Still waiting for the Clostridium difficile testing before giving any medication and I did explain that to the patient. CYNDI
--- NOTE | 2019-02-28 07:32 | PN ---
DATE OF SERVICE: 02/25/19 SUBJECTIVE: The Clostridium difficile testing is negative. She only had one bowel movement today and more or formed. She denies any abdominal pain. Her general condition is about the same. LUNGS: Breath sounds heard in the lower part of the posterior lateral chest. HEART: Normal sinus rhythm LEGS: No tenderness CONDITION: Stable This patient should have PT and hopefully she will get stronger as well as pulmonary rehabilitation. CYNDI
--- NOTE | 2019-03-02 11:40 | PN ---
DATE OF SERVICE: 02/23/19 SUBJECTIVE: The patient is alert, not dyspneic or tachypneic at rest. No cyanosis. LUNGS: No air exchange audible. HEART: Normal sinus rhythm, not tachycardic The patient was seen by Dr. Kapoor yesterday and they plan to do an echocardiogram in our discussion. VITALS: Temperature 98.5, pulse 70, blood pressure 157/82, respiratory rate 16, oxygen saturation 96 at 2 liters of oxygen. The patient's appetite seems to have improved beginning yesterday. She did eat 100% of her breakfast this morning. There is no result of the echocardiogram at this time. CYNDI
--- NOTE | 2019-03-02 13:07 | DS ---
DATE OF SERVICE: 02/27/19 PATIENT IDENTIFICATION/HOSPITAL COURSE: 73-year-old female is known to have severe chronic obstructive lung disease with chronic oxygen use at home for some time. She went to the emergency room because of increasing shortness of breath in the last two days. Also noted more frequent coughing. Her appetite also had decreased. The patient is alert, oriented and responsive and cooperative. Chest CT in the emergency room prior to admission showed extensive emphysematous changes, prominent right middle lobe pneumonia versus atelectasis, scattered bilateral tree in bud opacities compatible with small airway disease not interpreted as [place]. Superimposed areas of pneumonia. Lungs have markedly diminished breath sounds. No air exchange posteriorly. There is some air exchange laterally. No rales could be heard because of the very poor air exchange. Sputum culture growth light normal emre. Sputum gram stain 2+ WBC, 1 + gram positive cocci, blood cultures were negative. Rapid strep in ER negative. The patient was given Zosyn 3.375 gm intravenously q.6hr and initiated in the emergency room. She was also given Duoneb nebulizer, begun on intravenous fluids consisting of Normal Saline running at 75 cc/hr. Losartan was continued, increased to twice a day 50 mg. The IV was later changed to Dextrose 5% in 0.5 Saline, 1,000 cc plus 40 KCL plus MVI to run 62 cc/hr. Duoneb was continued nebulization q.6hr and Crestor was also resumed. The patient was given Solu-Cortef 100 mg intravenously once. This patient had been receiving Prednisone orally. Prednisone was decreased from 20 mg daily with meal to 10 mg daily. The patient had a lose bowel movement and the Zosyn was discontinued. Stool was tested for Clostridium difficile and tested negative. The patient persists to have some increased bowel movement like three times a day and Questran was initiated once and it did not control it completely. The patient claimed that the stool was soft but not watery. The patient was seen about 7 p.m. 02/27/19 and was alert, oriented times four, still with some dyspnea with oxygen. Lungs - posterior chest wall on auscultation has no air exchange but laterally the air exchange is noted and better. There are no rales present on either side. No wheezing. This patient had stopped smoking some two years ago. Heart is audible and regular, slightly rapid. Vital signs at 2 p.m on the day of discharge showed a temperature 98.5, pulse rate 98, blood pressure 105/56, respiratory rate 18, oxygen saturation 94, 2L of nasal oxygen. Chest x-ray 02/26/19 showed patchy bilateral perihilar and basilar infiltrates likely representing pneumonia. recommended followup. Previous chest x-ray done 12/31/18 showed definite acute infiltrate, chronic obstructive pulmonary disease , no acute changes or no changes compared to 11/22/18. Prescription Losartan 50 mg twice a day. The patient had been taking this medication once a day. Resume medications Ipratropium/Albuterol Sulfate 0.5 - 3 (2.5 mg per 3 cc) nebulization at bedtime, Crestor 10 mg daily. The patient is to see me one week from Thursday02/28/19 and before if there are any concerns. If not in the office, to go to the emergency room. FINAL DIAGNOSES: 1. CHRONIC COPD WITH EXACERBATION, PNEUMONITIS 2. HYPERTENSION, CONTROLLED 3. DYSLIPIDEMIA ON MEDICATION PLAN: 1. See me one week from Thursday02/28/19 or before if there are any concerns. 2. The patient should have a chest x-ray, two views at time of her followup. PROGNOSIS: GUARDED. TIME SPENT: GREATER THAN 30 MINUTES MTDD
== END 2019-02-27 19:45 | disposition home or self-care (01) | DRG 640 ==
LOC: ED 12:02 → MEDSURG B 13:37
PROVIDERS: ADMIT General Practice; ATTEND General Practice
DX: E87.6 Hypokalemia (principal); J18.9 Pneumonia, unspecified organism; J44.1 Chronic obstructive pulmonary disease with (acute) exacerbation; J96.10 Chronic respiratory failure, unspecified whether with hypoxia or hypercapnia; E78.5 Hyperlipidemia, unspecified; I10 Essential (primary) hypertension; R53.1 Weakness; R06.00 Dyspnea, unspecified; R06.02 Shortness of breath; R05 Cough; R06.01 Orthopnea; R19.7 Diarrhea, unspecified
CPT/HCPCS: 36415; 80048; 80053; 82550; 82803; 83605; 83735; 84145; 84484; 85007; 85025; 86710; 87040; 87070; 87205; 87493; 87502; 87651; 93005; 93010; 94640; 97802; 99284

== ENCOUNTER 2019-03-02 11:15 | Outpatient (CLI) | payer OTHER | END 2019-03-02 11:16 | disposition home or self-care (01) | LOC: WOUND 11:15 | PROVIDERS: ATTEND Nurse Practitioner Family | DX: S97.82XA Crushing injury of left foot, initial encounter (principal); J44.9 Chronic obstructive pulmonary disease, unspecified ==

== ENCOUNTER 2019-03-07 11:14 | Outpatient (CLI) ==
--- NOTE | 2019-03-07 13:44 | DI ---
EXAM: CHEST FRONTAL AND LATERAL VIEWS HISTORY: Chronic obstructive pulmonary disease. COMPARISON: 02/26/2019 FINDINGS: Heart size remains within normal limits. There is at least moderate atherosclerotic disea se. Hyperinflation and diffuse lucency in the lung zones consistent with severe emphysema/chronic ob structive pulmonary disease. Interstitial thickening in the bases is similar to that previously seen and may be fibrotic in nature. Unable to completely exclude some basilar pneumonia in this setting and managing the patient on a clinical basis is recommended. There is no vascular congestion, pneumo thorax or pleural fluid. IMPRESSION: Severe chronic obstructive pulmonary disease. Basilar fibrosis. Cannot exclude basilar pneumonia. No definite change since prior study. Managing the patient on a clinical basis is recom mended.
== END 2019-03-07 11:15 | disposition home or self-care (01) ==
LOC: RAD 11:14
PROVIDERS: ATTEND General Practice
DX: J44.9 Chronic obstructive pulmonary disease, unspecified (principal)

== ENCOUNTER 2020-02-02 12:24 | Inpatient (IN) ==
[2020-02-02 12:49] VITALS: BMI 16.0
[2020-02-02 14:00] LABS: HEMATOCRIT 41.9 % (37.0-47.0)
[2020-02-02] MEDS: INFUVITE ADULT 10 ML in D5%-1/2NS-KCL 20 MEQ/L IV SOL 1,000 ML IV SCH (14:44)
[2020-02-02] MEDS: DUONEB NEB SCH ×2 (17:00→23:43)
--- NOTE | 2020-02-02 20:49 | CT ---
EXAM: CT of the chest without contrast History: Short of breath, chronic obstructive pulmonary disease Comparison: Chest radiograph 09/23/2019, chest CT 09/07/2019 Technique: Multiplanar CT images through the thorax were obtained without the administration of IV c ontrast Findings: Heart size is normal. Coronary calcifications. No thoracic aortic aneurysm. No axillary or mediast inal lymphadenopathy. Evaluation for hilar lymph nodes is limited due to the lack of contrast admini stration. Emphysema. No pleural fluid and no pneumothorax. Scattered areas of scarring and subsegm ental atelectasis again noted. There is new right upper lobe suprahilar infiltrate with focal area o f nodularity measuring 1.5 cm. Within the visualized upper abdomen, no grossly acute findings. No acute osseous abnormalities. Impression: 1. New right suprahilar nodular infiltrate could be infectious/inflammatory or neoplastic etiology. Follow-up chest CT is recommended in 3 months after treatment for pneumonia. If this does not resol ve then biopsy may be needed. 2. Emphysema. 3. Coronary artery disease
[2020-02-02] MEDS: ZITHROMAX 500 MG in SODIUM CHLORIDE 250 ML IV SCH (22:24)
[2020-02-03] MEDS: ROCEPHIN 1 GM/50 ML D5W 1 GM/50 ML BAG IV SCH ×2 (00:41→20:39)
[2020-02-03] MEDS: DUONEB NEB SCH ×4 (05:04→22:35)
[2020-02-03] MEDS: INFUVITE ADULT 10 ML in D5%-1/2NS-KCL 20 MEQ/L IV SOL 1,000 ML IV SCH ×3 (06:31→20:38)
[2020-02-03] MEDS ORDERED: INFUVITE ADULT IV ONE ×2 (06:55→20:16)
[2020-02-03] MEDS: COZAAR PO SCH (10:21)
--- NOTE | 2020-02-03 13:51 | HP ---
DATE OF SERVICE: 02/02/20 CHIEF COMPLAINT: Shortness of breath and cough. HISTORY OF PRESENT ILLNESS: Ms. Lozano is a pleasant 74-year-old patient of Dr. Villagran who presented to the office on 02/02/20 for a sick visit in the morning around 11 a.m. She reported complaints of increase in shortness of breath. She complained of being extremely fatigue and weak. She did not feel her "normal self". She reported the symptoms started the day prior. She complained of dyspnea, shortness of breath. She also complained of her lower extremity swelling off and on. She told me that her cough was productive and clear. She was wearing 02 at 2L/NC. She does wear this around the clock. She does have significant COPD. She also has chronic respiratory failure with hypoxia. She was unsure about fever, in fact, she did say that she had some "cold flashes". She did complain of some headache but this chronic for her. She denied any nausea, vomiting, diarrhea or changes in stools. She denied being out of the country. She denied any sinusitis or sinus symptoms. She denies any current tobacco use. She did report the symptoms started yesterday. She reported the last time she was out of the house was the first Thursday of the month she went to the [employer] and she played uzma but she did say that she went briefly to the grocery store this past weekend and got some groceries. She denied any recent pneumonia. She denies any recent antibiotics. Because of her symptoms, her history of COPD and her history of chronic respiratory failure and hypoxia and her current clinical state and her oxygen saturation was 91% on 2L/NC. Decision was made to direct admit the patient to the hospital for further evaluation and treatment of her COPD and chronic respiratory failure. It was felt that she was in acute respiratory failure at this time. PAST MEDICAL HISTORY: COPD Chronic respiratory failure Hyperlipidemia Hypertension She does wear home 02 at 2L/NC due to the chronic respiratory failure. PAST SURGICAL HISTORY: Tubal ligation Appendectomy Cholecystectomy FAMILY HISTORY: Brother with cancer of the GI tract and also brother with congestive heart failure, a sister with diabetes, a sister with hypothyroidism, father with myocardial infarction, mother with hypothyroidism. SOCIAL HISTORY: She is a former smoker of 60 years. She is exposed to smoke in her home. She does report alcohol use and frequently only on special occasions. This would be beer. Denies any ilicit drug use. She is . Her was at the office visit with her today. MEDICATIONS: (CURRENT HOME) Ipratropium Albuterol 3 mL inhalation three times a day as needed Losartan 50 mg daily Rosuvastatin 10 mg daily ALLERGIES: NKDA REVIEW OF SYSTEMS: CONSTITUTIONAL: She did report cold chills. No reports of fever. No report of nightsweats. Weight was stable but she did feel that she had lost some weight. I did look back and her weight was stable from the last visit. HEENT: Denies any complaint of nasal drainage, sore throat or any allergy symptoms. She did complain of a slight headache but says this is chronic for her. Denied any visual changes. CARDIOVASCULAR: Denied any complaint of chest pain. Denied any irregular rhythm, or orthopnea. She did complain of off and on peripheral edema. RESPIRATORY: Significant for shortness of breath, dyspnea, cough, productive cough of clear sputum. She did complain of chest congestion and wheezing. She does have a history of COPD and chronic respiratory failure. GASTROINTESTINAL: Denied any complaints of abdominal pain. Denies nausea or vomiting. Denies constipation. Denies blood in stool or change in stool consistency. GENITOURINARY: No reports of any dysuria, hematuria, nocturia or urinary incontinence. MUSCULOSKELETAL: No reports of any unusual muscle pain, joint redness or swelling. Denied any rheumatological issues. NEUROLOGIC: No reports of any dizziness. She does complain of extreme weakness. No reports of any syncopal episodes or any seizure-like activity. PSYCHIATRIC: No complaints of anxiety, depression or mood changes. ENDOCRINE: She does not report a history of diabetes mellitus or thyroid disease. There were no reports of increased thirst, urination, heat or cold intolerance. INTEGUMENTARY: There were no reports of any rashes, lesions or skin changes. PHYSICAL EXAMINATION: GENERAL: She does appear ill-looking. She does have some labored breathing at the office visit. She is wearing 02 at 02L/NC. VITAL SIGNS: At the office visit her height was 5'3, weight 89 lbs. BMI 15.7, blood pressure elevated at 162/71, respirations initially reported at 24, pulse 47/min, temperature 97.7, pulse ox 91 on 2L/NC and this was at rest. HEENT: Head normocephalic, atraumatic. Pupils equal/reactive to light. Mucous membranes were dry. NECK: Supple. No lymphadenopathy. I did not auscultate any carotid bruits on exam. CARDIOVASCULAR: S1, S2 regular rate and rhythm. There were no murmurs on exam. She did not have any peripheral edema on exam. LUNGS: In regard to her lung evaluation, she did have labored breathing. She had extremely diminished lung sounds throughout. ABDOMEN: Soft. Bowel sounds are positive. No tenderness on exam. NEUROLOGIC: Cranial nerves 2-12 grossly intact. There were no overt neurological deficits noted on exam. SKIN: Warm and dry. There were no overt rashes or lesions noted on exam. The most recent diagnostic testing was done in September. She did not have any recent diagnostic testing to basic exam findings or on. She would be a direct admit from the office. ASSESSMENT: 1. COPD EXACERBATION 2. ACUTE ON CHRONIC RESPIRATORY FAILURE WITH HYPOXEMIA 3. BRADYCARDIA 4. HYPERTENSION 5. HYPERLIPIDEMIA 6. WEAKNESS 7. PERSISTENT SHORTNESS OF BREATH AND DYSPNEA PLAN: 1. Will admit the patient. 2. She will need a CT of the chest along with blood cultures, sputum gram stain and C & S. She will need lab work completed as well as telemetry monitoring. Labs that were completed included a CBC, CMP, NT-Pro-BNP, procalcitonin as well as Magnesium, urinalysis, culture and sensitivity. Again a CT of the chest and ABGs were drawn as well. After review of testing, treatment decision will be made. Further orders and recommendations per Dr. Villagran. TIME SPENT: GREATER THAN 65 MINUTES MTDD
[2020-02-03] MEDS: CRESTOR PO SCH (20:39)
[2020-02-03] MEDS: ZITHROMAX 500 MG in SODIUM CHLORIDE 250 ML IV SCH (22:03)
[2020-02-04 05:05] LABS: HEMATOCRIT 36.2 % (37.0-47.0)
[2020-02-04] MEDS: DUONEB NEB SCH ×4 (05:05→23:08)
[2020-02-04] MEDS: INFUVITE ADULT 10 ML in D5%-1/2NS-KCL 20 MEQ/L IV SOL 1,000 ML IV SCH ×3 (07:23→16:14)
[2020-02-04] MEDS: COZAAR PO SCH (09:43)
[2020-02-04] MEDS ORDERED: INFUVITE ADULT IV ONE (11:09)
[2020-02-04] MEDS ORDERED: DECADRON 4 MG/ML SDV IM STA (16:46)
[2020-02-04] MEDS: CRESTOR PO SCH (17:07)
[2020-02-04] MEDS: ROCEPHIN 1 GM/50 ML D5W 1 GM/50 ML BAG IV SCH (20:14)
[2020-02-04] MEDS: ZITHROMAX 500 MG in SODIUM CHLORIDE 250 ML IV SCH (21:06)
[2020-02-05 04:19] LABS: HEMATOCRIT 34.7 % (37.0-47.0)
[2020-02-05] MEDS ORDERED: INFUVITE ADULT IV ONE ×2 (05:03→20:24)
[2020-02-05] MEDS: DUONEB NEB SCH ×4 (05:07→22:20)
[2020-02-05] MEDS: INFUVITE ADULT 10 ML in D5%-1/2NS-KCL 20 MEQ/L IV SOL 1,000 ML IV SCH ×3 (06:17→20:45)
[2020-02-05] MEDS: COZAAR PO SCH (08:47)
[2020-02-05] MEDS ORDERED: OCEAN NASAL SPRAY NAS PRN (14:04)
[2020-02-05] MEDS: CRESTOR PO SCH (17:14)
[2020-02-05] MEDS: ROCEPHIN 1 GM/50 ML D5W 1 GM/50 ML BAG IV SCH (20:26)
[2020-02-06] MEDS: DUONEB NEB SCH ×2 (04:43→11:09)
[2020-02-06] MEDS: COZAAR PO SCH (08:43)
--- NOTE | 2020-02-06 08:48 | CT ---
EXAM: CT THORAX HISTORY: Shortness of breath, chronic obstructive pulmonary disease. TECHNIQUE: CT thorax without intravenous contrast. Multiplanar images presented. COMPARISON: 02/02/2020 FINDINGS: Heart size is within normal limits. No pericardial effusion. There is moderately severe atheroscler otic disease. Limited evaluation of the mediastinum and hilar structures without the administration of intravenous contrast agent. Several small nonspecific mediastinal lymph nodes are seen. No defin ite hilar mass is obvious. Lungs again demonstrate evidence of severe emphysema and scattered fibrosis. There are scattered reema llate and linear areas of interstitial thickening which for the most part is likely fibrotic. Slight increase in bibasilar hazy density and discoid opacities could represent slight worsening pneumonia. The previously described right suprahilar nodularity/consolidation is unchanged and could represent pneumonia, atelectasis, scarring or conceivably developing neoplasia. There is no central vascular congestion, pleural fluid or pneumo thorax. The bones appear demineralized. There is exaggerated thoracic kyphosis. IMPRESSION: 1. Slight increase in bibasilar density could represent mild pneumonia superimposed on severe emphys masoud. Otherwise grossly stable findings since 02/02/2020.
[2020-02-06] MEDS: INFUVITE ADULT 10 ML in D5%-1/2NS-KCL 20 MEQ/L IV SOL 1,000 ML IV SCH ×2 (09:36→09:37)
--- NOTE | 2020-02-06 11:42 | PN ---
DATE OF SERVICE: 02/04/2020 SUBJECTIVE: The patient today is alert and claimed to be feeling better but she is still dyspneic and tachypneic with 2 liters of nasal oxygen. VITALS: Temperature 98.7, pulse 96, blood pressure 116/58, respiratory rate 20, oxygen saturation 95 with 2 liters of nasal canula. She is not cyanotic. FACE: Symmetrical and equal HEART: Audible and regular with good tones. LUNGS: Markedly diminished breath sounds. Air exchange is minimum. There is no wheezing and no rales. This patient will be given 4mg Decadron just one time. She is to continue the antibiotic Rocephin 1 gram intervenously daily. DUO NEB nebulizer Q 6 hours scheduled and the intervenously fluids consisting of D5 W will now consist of D5 1/2 saline plus 20 KCL plus MVI at 12 hours per 1,000. Also receiving Cozaar 50mg daily, Crestor 10mg daily, Nasal ocean spray PRN. STATUS: Stable MTDD
--- NOTE | 2020-02-06 12:43 | PN ---
DATE OF SERVICE: 02/05/2020 SUBJECTIVE: The patient is alert and claimed to be feeling better without any chest pain or abdominal pain. VITALS: Temperature 98.1 orally, pulse 87, blood pressure 131/60, respiratory rate 20, oxygen saturation 98% with 2 liters of nasal oxygen. The patient had some spot of blood on the tissue coming from the nose. This patient will be given a humidified oxygen. Also ordered a saline nasal rinse to keep it moist. This patient is not having hemoptysis. GENERAL: Satisfactory although dyspneic and tachypneic. FACE: Symmetrical and equal LUNGS: Markedly diminished breath sounds. No rales or wheezing. HEART: Audible and regular with good tones. ABDOMEN: Nontender CONDITION: Stable. PLAN: 1. Continue the Rocephin for now and see 2. Repeat CT of the chest will be done tomorrow and see if this has improved. The patient claims that she is feeling better. CYNDI
[2020-02-06 14:26] VITALS: BP 180/70; TEMP 98
[2020-02-06] MEDS ORDERED: ZITHROMAX 500 MG in SODIUM CHLORIDE 250 ML IV SCH (15:00)
[2020-02-06] MEDS ORDERED: ATIVAN PO STA (19:19)
[2020-02-06] MEDS ORDERED: ROCEPHIN 1 GM/50 ML D5W 1 GM/50 ML BAG IV SCH (21:00)
[2020-02-06] MEDS ORDERED: SOLU-MEDROL 125 MG IVP SCH (21:00)
--- NOTE | 2020-02-07 09:34 | PN ---
DATE OF SERVICE: 02/03/20 SUBJECTIVE: Today her vital signs, blood pressure 156/71, pulse 70, respirations 20, temperature 98.2, 02 sat 92% on 2L/NC. She was eating breakfast when I went in the room. Her breathing appears more stable. On lung exam, she does seem to have more air flow. She is still diminished but does seem to have more air flow when her lungs are examined. CT of the chest was reviewed. That was completed on 02/02/20. It did show a new right suprahilar nodular infiltrate, could be infectious or inflammatory or neoplastic etiology with recommendations for a followup CT of the chest recommended in three months after treatment for pneumonia. If this is not resolved then biopsy may need to be done. It does show emphysema and coronary artery disease. Her laboratory findings completed on 02/01 - she did have a normal white count, hemoglobin and hematocrit were normal. Her platelet count was normal. In regards to her blood gases, they were repeated because the first SAT was normal and incorrect. Her 02 saturation on the second SAT was 93% this is done on 2L/NC. Her ABG pH 7.384, pc02 52.2, p02 70. Her HC03 was 31.1, total c02 33 and her base excess was 6. In regards to her chemistry panel, sodium, potassium and chloride were normal. C02 was 32.2, BUN 9.1, creatinine 0.49, estimated GFR 123. Magnesium was slightly elevated just barely at 2.33. Her LFTs were normal. NT-Pro-BNP was just slightly elevated at 580. Her procalcitonin was negative at less than 0.05. She tells me today that she is breathing better compared to yesterday. I did review order SATs per Dr. Villagran and nebulizer treatments were initiated as well as regular diet. She did ask for rice krispies this morning and the nurse did bring her some rice krispies. Will follow blood cultures that were ordered as well as a sputum for gram stain and C & S. Ceftriaxone and Azithromycin were initiated on this patient as well as Nara. Home medications were resumed. She is on telemetry monitoring. Her heart rate was slightly low at her office visit therefore she was put on telemetry monitoring. She has been running anywhere from sinus rhythm with frequent PACs to sinus arrhythmia 90 to 100 beats/min. When initiated she was in sinus rhythm with PACs of 75 beats/min. Will continue to monitor this as well. Further orders and recommendations per Dr. Villagran. [facility]
--- NOTE | 2020-04-30 12:53 | DS ---
DATE OF SERVICE: 02/06/20 (FROM ACUTE) BRIEF HISTORY OF PRESENT ILLNESS/HOSPITAL COURSE: 74-year-old female who was seen initially at the office on 02/02/20 because of feeling very weak, increasing shortness of breath beginning the day before presentation, swelling of the lower extremities, cough productive with chilly sensation. She is not sure if she had any fever. She was then subsequently admitted with diagnosis of COPD with acute exacerbation. CBC showed normal WBC 6.16, normal hemoglobin, hematocrit, MCV normal, MCH below normal. RDW upper normal 15.0. Electrolytes normal. C02 slightly above normal 30.2. EGFR 123. NT Pro-BNP 580. Procalcitonin less than 0.05. CT chest also on 02/02/20 showed new right suprahilar nodular infiltrate, could be infectious or neoplastic. Repeat CT in three months after treatment for pneumonia. Gram positive cocci sputum on gram stain. Blood culture negative until discharge. The patient's temperature fluctuated but within range of normal what is considered normal, the highest was 98.5. Her blood pressure was almost always normal from the day of admission although slightly elevated at 160/71 but had been gradually decreasing and was normal until the day of discharge on 02/06/20. Blood pressure has risen to 180/70 to 211/85 and 200/80 and 187/80. Reason for the rise during that day is not quite feasible. This patient is however discharged from acute care to transitional and we will monitor her blood pressure. Her oxygen saturation with 2L of oxygen did go up as high as 95 but that was on admission. The oxygen saturation thereafter was between 88 to 93. The patient's heart was normal sinus rhythm, slightly tachycardic sometimes and lungs have practically no air exchange. The patient was given Ceftriaxone and Azithromycin. She also received Duoneb by nebulizer every 6 hours. The patient had improved clinically, feeling better and the repeat CT chest 02/06/20 showed increasing bibasilar density representing mild pneumonia on severe emphysema. Because of the worsening, the patient is going to continue receiving an antibiotic and will be placed in transitional care. The Azithromycin was completed after three days. Right suprahilar nodular consolidation is about the same but the bibasilar consolidation has increased. She is alert and oriented with movement of all extremities. Lungs have somewhat better air exchange but still markedly compromised. No rales audible or wheezing. Heart is normal sinus rhythm, not tachycardic. ASSESSMENT: 1. Right suprahilar density, pneumonia. 2. Increased bibasilar density maybe pneumonia. 3. COPD severe with acute exacerbation. 4. Chronic respiratory failure, improved. 5. Hypertension, uncontrolled. 6. Chronic respiratory failure on home oxygen secondary to COPD. 7. History of chronic tobacco use and abuse, stopped more than three years ago. PROGNOSIS: Poor. TIME SPENT: GREATER THAN 30 MINUTES MTDD
== END 2020-02-06 16:02 | disposition short-term general hospital (02) | DRG 204 ==
LOC: MEDSURG B 12:24
PROVIDERS: ADMIT General Practice; ATTEND General Practice